=== PATIENT | female | born 1955 | race Caucasian/White ===

== ENCOUNTER → 2018-04-09 14:28 | Outpatient (CLI) | payer MEDICARE, OTHER, SELFPAY ==
--- NOTE | 2018-04-09 | DI.MG.S_ITS ---
BILATERAL DIGITAL SCREENING MAMMOGRAM 3D/2D WITH CAD: 04/09/2018 CLINICAL: Routine screening. Family history of breast cancer. Comparison is made to exams dated: 02/11/2016 mammogram, 01/08/2015 mammogram, and 01/16/2013 mammogram - [facility]. The tissue of both breasts is heterogeneously dense. This may lower the sensitivity of mammography. Current study was also evaluated with a Computer Aided Detection (CAD) system. Bilateral breast implants are intact. No significant masses, calcifications, or other findings are seen in either breast. There has been no significant interval change. IMPRESSION: NEGATIVE There is no mammographic evidence of malignancy. A 1 year screening mammogram is recommended. This exam was interpreted at Station ID: [id number]. NOTE: For mammograms, a report in lay terms will be sent to the patient. Approximately 15% of breast malignancies will not be visualized mammographically. In the management of a palpable breast mass, a negative mammogram must not discourage biopsy of a clinically suspicious lesion. Electronically Signed By: Jasper ramirez/ivania:04/09/2018 16:41:47 letter sent: Normal Exam ACR BI-RADS Category 1: Negative 3341F
== END ==
PROVIDERS: Visit Provider Family Medicine
DX: Z12.31 Encounter for screening mammogram for malignant neoplasm of breast (principal); Z80.3 Family history of malignant neoplasm of breast
CPT/HCPCS: 77063; 77067

== ENCOUNTER → 2018-08-14 07:47 | Outpatient (CLI) | payer MEDICARE, OTHER, SELFPAY ==
[2018-08-14 08:58] LABS: Cholesterol 218 mg/dL (140-199); HDL Cholesterol 97 mg/dL (40-60); LDL Cholesterol Calculated 94 mg/dL (<100); Triglycerides 134 mg/dL (35-150)
== END ==
PROVIDERS: Visit Provider Internal Medicine
DX: E78.00 Pure hypercholesterolemia, unspecified (principal)
CPT/HCPCS: 80061

== ENCOUNTER → 2018-12-05 13:00 | Outpatient (CLI) | payer OTHER, SELFPAY | PROVIDERS: PCP Student in an Organized Health Care Education/Training Program; Visit Provider Student in an Organized Health Care Education/Training Program | DX: Z13.820 Encounter for screening for osteoporosis (principal); Z78.0 Asymptomatic menopausal state; E07.9 Disorder of thyroid, unspecified; Z82.62 Family history of osteoporosis | CPT/HCPCS: 77080 ==

== ENCOUNTER → 2019-04-09 15:00 | Outpatient (CLI) | payer OTHER, SELFPAY ==
--- NOTE | 2019-04-09 | DI.MG.S_ITS ---
BILATERAL DIGITAL SCREENING MAMMOGRAM 3D/2D WITH CAD WITH AUGMENTATION: 04/09/2019 CLINICAL: Routine screening. Family history of breast cancer. Comparison is made to exams dated: 04/09/2018 mammogram, 02/11/2016 mammogram, and 01/08/2015 mammogram - [facility]. The tissue of both breasts is heterogeneously dense. This may lower the sensitivity of mammography. Current study was also evaluated with a Computer Aided Detection (CAD) system. Bilateral breast implants are intact. There is a benign biopsy clip in the right breast. No significant masses, calcifications, or other findings are seen in either breast. There has been no significant interval change. IMPRESSION: NEGATIVE There is no mammographic evidence of malignancy. A 1 year screening mammogram is recommended. This exam was interpreted at Station ID: [id number]. NOTE: For mammograms, a report in lay terms will be sent to the patient. Approximately 15% of breast malignancies will not be visualized mammographically. In the management of a palpable breast mass, a negative mammogram must not discourage biopsy of a clinically suspicious lesion. Electronically Signed By: Isaac jackson/ivania:04/09/2019 16:43:10 letter sent: Normal Exam ACR BI-RADS Category 1: Negative 3341F
== END ==
PROVIDERS: PCP Student in an Organized Health Care Education/Training Program; Visit Provider Student in an Organized Health Care Education/Training Program
DX: Z12.31 Encounter for screening mammogram for malignant neoplasm of breast (principal); Z80.3 Family history of malignant neoplasm of breast
CPT/HCPCS: 77063; 77067

== ENCOUNTER → 2019-05-09 15:17 | Outpatient (CLI) | payer OTHER, SELFPAY ==
[2019-05-09 16:30] LABS: BUN Creatinine Ratio 21.3 (6-22); Blood Urea Nitrogen 17 mg/dL (7-17); Calcium 9.9 mg/dL (8.4-10.2); Carbon Dioxide 30 mmol/L (22-32); Chloride 99 mmol/L (98-107); Estimated Glomerular Filt Rate > 60.0 mL/min (>60); Glucose 95 mg/dL (80-110); HEMOLYSIS < 15 (0-50); Potassium 4.6 mmol/L (3.4-5.1); Sodium 138 mmol/L (137-145)
[2019-05-09 17:19] LABS: Vitamin B12 287 pg/mL (239-931)
== END ==
PROVIDERS: PCP Student in an Organized Health Care Education/Training Program; Visit Provider Student in an Organized Health Care Education/Training Program
DX: K52.9 Noninfective gastroenteritis and colitis, unspecified (principal); R10.13 Epigastric pain
CPT/HCPCS: 36415; 80048; 82607; 83516

== ENCOUNTER → 2019-05-11 11:20 | Outpatient (CLI) | payer OTHER, SELFPAY ==
[2019-05-11 13:47] LABS: Clostridium Difficile Tox PCR Negative for C. diff
[2019-05-16 17:00] LABS: Calprotectin, Stool 32.3 mcg/g
== END ==
PROVIDERS: PCP Student in an Organized Health Care Education/Training Program; Visit Provider Student in an Organized Health Care Education/Training Program
DX: K52.9 Noninfective gastroenteritis and colitis, unspecified (principal); R10.13 Epigastric pain
CPT/HCPCS: 83993; 86677; 87045; 87329; 87493; 87899

== ENCOUNTER → 2019-05-30 11:55 | Outpatient (CLI) | payer OTHER, SELFPAY ==
--- NOTE | 2019-05-30 11:58 | DI.RAD.S_ITS ---
PROCEDURE: XR CHEST 2V INDICATIONS: Cough, suspect bronchitis TECHNIQUE: 2 views of the chest were acquired. COMPARISON: [facility], , CHEST 2 VIEW, 12/11/2013, 14:57. FINDINGS: Surgical changes and devices: None. Lungs and pleura: Lungs are clear. No pleural effusions or pneumothorax. Mediastinum: Mediastinal contours are normal. Heart size is normal. Bones and chest wall: No suspicious bony abnormalities. Soft tissues appear unremarkable. IMPRESSION: No acute cardiopulmonary disease. Dictated by: Nirav Pabon M.D. on 05/30/2019 at 14:14 Approved by: Nirav Pabon M.D. on 05/30/2019 at 14:14
== END ==
PROVIDERS: PCP Student in an Organized Health Care Education/Training Program; Visit Provider Student in an Organized Health Care Education/Training Program
DX: R05 Cough (principal)
CPT/HCPCS: 71046

== ENCOUNTER → 2019-06-12 11:44 | Outpatient (CLI) | payer OTHER, SELFPAY ==
[2019-06-12 12:51] LABS: Hematocrit 35.7 % (36-46); Hemoglobin 12.1 g/dL (12.0-16.0); Mean Corpuscular Hemoglobin 32.5 PG (26-34); Mean Corpuscular Volume 95.5 fL (80-100); Platelet Count 322 X10^3/uL (150-400); Red Blood Cell Count 3.74 X10^6/uL (4.0-5.2); Red Cell Distribution Width 14.7 % (11.6-14.8); White Blood Cell Count 6.7 X10^3/uL (4.5-11.0)
[2019-06-12 13:03] LABS: Alanine Aminotransferase 30 IU/L (9-52); Albumin 4.3 g/dL (3.5-5.0); Albumin Globulin Ratio 1.3 (1.0-2.8); Alkaline Phosphatase 116 U/L (38-126); Aspartate Aminotransferase 37 IU/L (14-36); Bilirubin Total 0.5 mg/dL (0.2-1.3); Bilirubin Unconjugated 0.2 mg/dL (0.0-1.1); Gamma Glutamyl Transpeptidase 216 U/L (12-43); Globulin 3.2 g/dL (1.7-4.1); HEMOLYSIS < 15 (0-50); Lipase 137 U/L (23-300); Total Protein 7.5 g/dL (6.3-8.2)
== END ==
PROVIDERS: PCP Student in an Organized Health Care Education/Training Program; Visit Provider Student in an Organized Health Care Education/Training Program
DX: R10.13 Epigastric pain (principal); E03.9 Hypothyroidism, unspecified; K21.9 Gastro-esophageal reflux disease without esophagitis
CPT/HCPCS: 36415; 80076; 82977; 83690; 85027

== ENCOUNTER → 2019-06-14 11:04 | Outpatient (CLI) | payer OTHER, SELFPAY ==
--- NOTE | 2019-06-14 11:06 | DI.US.S_ITS ---
PROCEDURE: US ABDOMEN LIMITED INDICATIONS: EPIGASTRIC PAIN TECHNIQUE: Real-time focused scanning was performed of the abdomen, with image documentation. COMPARISON: [facility], US, ABDOMEN COMPLETE, 01/02/2014, 7:48. [facility], CT, CHEST/ABDOMEN WITHOUT CONTRAST, 12/13/2013, 13:10. FINDINGS: Liver is diffusely increased in echogenicity. No focal hepatic abnormalities identified. Normal hepatic size. Focal fatty sparing adjacent to the gallbladder. No gallstones identified. Normal gallbladder wall. Previously visualized gallbladder polyps is not seen on today's exam. No pericholecystic fluid. Negative sonographic Resendez sign. No biliary dilatation. Normal pancreas. IMPRESSION: 1. Increased hepatic echogenicity noted possibly related to hepatic steatosis but other sources of hepatocellular disease cannot be excluded. Recommend clinical correlation. Dictated by: Chad Yancey [facility] Interpreted: Yue Kemp MD on 06/14/2019 at 13:10 Approved by: Yue Kemp MD, PhD on 06/14/2019 at 14:20
== END ==
PROVIDERS: PCP Student in an Organized Health Care Education/Training Program; Visit Provider Student in an Organized Health Care Education/Training Program
DX: R10.13 Epigastric pain (principal)
CPT/HCPCS: 76705

== ENCOUNTER → 2019-07-29 11:17 | Outpatient (CLI) | payer OTHER, SELFPAY ==
[2019-07-31 08:02] LABS: Immunoglobulin A,Qn 183
[2019-07-31 08:05] LABS: Deamidated Gliadin Ab IgA 3
[2019-07-31 08:06] LABS: Deamidated Gliadin Ab IgG 3
[2019-07-31 08:08] LABS: t-Transglutaminase IgA <2
== END ==
PROVIDERS: PCP Student in an Organized Health Care Education/Training Program
DX: R19.7 Diarrhea, unspecified (principal)
CPT/HCPCS: 36415; 82784; 83516

== ENCOUNTER 2019-08-12 05:20 | Emergency (ER) | payer OTHER, SELFPAY ==
--- NOTE | 2019-08-12 05:25 | ED.GENADULT ---
HPI - General Adult General Chief complaint: Dizziness Stated complaint: DIZZINESS, FELL, NAUSEA Time Seen by Provider: 08/12/19 05:22 Source: patient Mode of arrival: Ambulatory Limitations: no limitations History of Present Illness HPI narrative: 64-year-old female here for evaluation of an episode that occurred this morning. Patient states she woke up to urinate and when she sat on the edge of the bed she stated that she became very dizzy. No other associated symptoms at the time. States she has tried to stand up and fell forward. Hit her head on the ground. No loss of consciousness. She is not on blood thinners. She has no neck pain. Her helped her of the floor. States she went into the restroom and sat on the toilet for period of time and still was very dizzy. Worse when she had her eyes open. Again no other associated symptoms. She did urinate during this time. She states she became very clammy and nauseous. Did have some episodes of vomiting. States she sat on the toilet for approximately 30 minutes when her symptoms were only minimally improving she decided to come into the emergency department for evaluation. Related Data Home Medications Medication Instructions Recorded Confirmed betamethasone dipropionate 0.05 % 1 applictn TOP DAILY PRN 11/28/18 06/12/19 topical cream calcitriol 3 mcg/gram topical 1 applictn TOP Q12H 11/28/18 06/12/19 ointment cetirizine 10 mg tablet 5 mg PO DAILY PRN 11/28/18 06/12/19 lutein 40 mg capsule 40 mg PO DAILY 11/28/18 06/12/19 cholecalciferol (vitamin D3) 2,000 2,000 unit PO DAILY 05/30/19 06/12/19 unit capsule mecobalamin (vitamin B12) 5,000 mcg PO tab 05/30/19 06/12/19 mcg disintegrating tablet Previous Rx's Medication Instructions Recorded epinephrine 0.3 mg/0.3 mL 0.3 mg IM ONCE #2 each 08/08/18 injection, auto-injector hydrocortisone 1 % topical cream 1 applictn TOP BID PRN #14.2 gram 11/28/18 rosuvastatin 10 mg tablet 10 mg PO DAILY #90 tab 12/14/18 citalopram 10 mg tablet 10 mg PO QDAY #90 tab 04/09/19 citalopram 20 mg tablet 20 mg PO QDAY #90 tab 04/09/19 pantoprazole 20 mg tablet,delayed 20 mg PO DAILY #30 tab 06/12/19 release levothyroxine 100 mcg tablet 100 mcg PO QDAY #90 tab 07/08/19 Allergies Allergy/AdvReac Type Severity Reaction Status Date / Time tetracycline Allergy Mild HAND EDEMA Verified 06/12/19 11:25 AND SKIN DISCOLORATION (ORANGE) venom-honey bee AdvReac Unknown Verified 06/12/19 11:25 [bee venom (honey bee)] Review of Systems Constitutional Constitutional: Denies fatigue, Denies fever(s) and Denies headache(s) Eyes Eyes: Denies blurry vision, Denies change in vision and Denies loss of vision ENT Ears, Nose, Mouth, and Throat: Reports vertigo, Reports dizziness, Denies headache(s), Denies neck pain, Reports disequilibrium, Denies sinus pressure and Denies sore throat Cardiovascular Cardiovascular: Denies chest pain, Denies syncope, Denies palpitations and Denies dyspnea Respiratory Respiratory: Denies dyspnea Gastrointestinal Gastrointestinal: Denies abdominal pain, Denies nausea and Denies vomiting Genitourinary Genitourinary: Denies dysuria Musculoskeletal Musculoskeletal: Denies myalgias, Denies arthralgias and Denies neck pain Integumentary/Breasts Skin/Breast: Denies rash Neurologic Neurologic: Denies behavioral changes, Denies confusion, Reports vertigo, Reports dizziness, Denies syncope, Denies headache(s), Denies loss of vision, Denies memory loss and Reports disequilibrium Psychiatric Psychiatric: Denies behavioral changes, Denies confusion and Denies memory loss Endocrine Endocrine: Denies fatigue and Denies palpitations Hematologic/Lymphatic Hematologic/Lymphatic: Denies easy bleeding and Denies easy bruising [facility] Medical History Ankle fracture, right (Resolved 2002) Colon polyps (Resolved) Hypothyroidism (Chronic) Menopausal symptoms (Chronic 2007) Psoriasis (Chronic) Pulmonary nodules (Resolved) Surgical History (Updated 05/21/18 @ 16:40 by Yulia Ramírez) History of breast augmentation (Resolved) History of carpal tunnel release (Resolved) History of colonoscopy (Resolved 2010) History of eyelid surgery (Resolved 2013) Status post arthroscopy (Resolved) Status post hysterectomy (Resolved) Family History Sister Thyroid cancer Son Lymphoma Sister Breast cancer Sister Breast cancer Social History Smoking Status: Former smoker Family History Sister Thyroid cancer Son Lymphoma Sister Breast cancer Sister Breast cancer Social History Smoking Status: Former smoker Exam Initial Vital Signs Initial Vital Signs: Vital Signs Temperature 98.3 F 08/12/19 05:27 Pulse Rate 75 08/12/19 05:27 Respiratory Rate 17 08/12/19 05:27 Blood Pressure 144/70 H 08/12/19 05:27 Pulse Oximetry 99 08/12/19 05:27 Const General: cooperative, healthy appearing, comfortable, well developed, well groomed and No acute distress Orientation: alert, awake and oriented x3 HENMT Head: normal to inspection and normocephalic Face and sinus: normal facial exam Mouth: oral mucosae normal Eyes Pupils: PERRL EOM: EOM intact bilaterally Resp Effort & Inspection: normal respiratory effort Auscultation: clear to auscultation bilaterally Cardio Rate: regular rate Rhythm: regular rhythm Pulses: radial pulses present GI Inspection: non-distended Palpation: soft, No firm and No tender Back/Spine/Pelvis Cervical Spine: No collar present and No cervical spinal tenderness Skin Lesions: no lesions Rashes: no rashes Neuro General: alert, awake and oriented x3 Cranial Nerves: CN's II-XI intact bilaterally Cognition: normal cognition Speech: speech normal Gait: normal gait Motor: muscle tone normal throughout Sensory Exam: no sensory deficits noted Extrem General: normal to inspection and capillary refill normal Psych Appearance: grossly normal and well kempt Scores GCS Ramesh coma scale eye opening: Spontaneous [place] coma scale verbal response: Orientated [place] coma scale motor response: Obey commands [place] coma scale total score: 15 Course Orders Ordered: ED Orders 08/12/19 05:24 EKG-12 Lead Stat 08/12/19 05:30 Complete Blood Count AUTO DIFF Stat Comprehensive Metabolic Panel Stat Free T4 Free Thyroxine Stat Lipase Stat Thyroid Stimulating Hormone Stat Triiodothyronine T3 Free Stat Troponin I Stat Discontinued Medications Diazepam (Valium) 5 mg PO NOW ONE Stop: 08/12/19 06:08 Last Admin: 08/12/19 06:42 Dose: Not Given Documented by: ANTONIETA Sodium Chloride (Normal Saline 0.9%) 1,000 mls @ 1,000 mls/hr IV BOLUS ONE Stop: 08/12/19 06:37 Last Admin: 08/12/19 05:45 Dose: 1,000 mls/hr Documented by: ANTONIETA Meclizine HCl (Antivert) 25 mg PO NOW ONE Stop: 08/12/19 05:39 Last Admin: 08/12/19 05:45 Dose: 25 mg Documented by: ANTONIETA Vital Signs Vital signs: Vital Signs - 8 hr 08/12/19 05:27 08/12/19 05:46 08/12/19 06:14 Temperature 98.3 F Pulse Rate 75 73 72 Respiratory Rate 17 17 16 Blood Pressure 144/70 H Blood Pressure [Left Arm] 142/77 H 135/77 Pulse Oximetry 99 96 95 Medical Decision Making Medical Records Medical records reviewed: Yes I reviewed the patient's medical records. Lab Data Lab results reviewed: Yes I reviewed the patient's lab results. Result diagrams: 08/12/19 05:30 08/12/19 05:30 Labs: Lab Results 08/12/19 08/12/19 08/12/19 Range/Units 05:30 05:30 05:30 WBC 5.9 (4.5-11.0) X10^3/uL RBC 3.78 L (4.0-5.2) X10^6/uL Hgb 12.2 (12.0-16.0) g/dL Hct 35.8 L (36-46) % MCV 94.7 (80-100) fL MCH 32.3 (26-34) PG MCHC 34.1 (30-36) % RDW 14.2 (11.6-14.8) % Plt Count 324 (150-400) X10^3/uL Neut % (Auto) 47.5 L (50-75) % Lymph % (Auto) 39.3 (25-40) % [place] % (Auto) 7.3 (3-14) % Eos % (Auto) 4.9 H (2-4) % Baso % (Auto) 1.0 (0-2) % Neut # (Auto) 2800 (1393-4052) /uL Lymph # (Auto) 2300 (0994-0934) /uL [place] # (Auto) 400 (0-900) /uL Eos # (Auto) 300 (0-450) /uL Baso # (Auto) 100 (0-100) /uL Sodium 139 (137-145) mmol/L Potassium 3.8 (3.4-5.1) mmol/L Chloride 103 (98-107) mmol/L Carbon Dioxide 25 (22-32) mmol/L BUN 14 (7-17) mg/dL Creatinine 0.80 (0.52-1.04) mg/dL Estimated GFR > 60.0 (>60) mL/min BUN/Creatinine Ratio 17.5 (6-22) Glucose 133 H (80-110) mg/dL Calcium 8.9 (8.4-10.2) mg/dL Total Bilirubin 0.3 (0.2-1.3) mg/dL AST 36 (14-36) IU/L ALT 31 (9-52) IU/L Alkaline Phosphatase 90 (38-126) U/L Troponin I < 0.012 (0.01-0.034) ng/mL Total Protein 7.6 (6.3-8.2) g/dL Albumin 4.2 (3.5-5.0) g/dL Globulin 3.4 (1.7-4.1) g/dL Albumin/Globulin Ratio 1.2 (1.0-2.8) Lipase 121 (23-300) U/L TSH 8.36 H (0.47-4.68) uIU/mL ECG Data Attestation: I personally reviewed and interpreted this ECG as follows: Prior ECG tracings: not available for review Interpretation: Sinus rhythm Normal axis Ventricular rate is 73 Normal QRS Normal QTC No ST T wave changes MDM Narrative Medical decision making narrative: Patient is a normal neurologic exam in the ER. EKG is unremarkable. Low suspicion for CVA. Low suspicion for TIA. Low suspicion for ACS. Her TSH today is elevated. She states that she recently had her TSH checked here at this hospital by her primary doctor. She states she was told that it was ?normal? I cannot seem to find this prior TSH level. Free T4 and free T3 were ordered an not returned by the time patient was discharged. I did inform her that she should call her primary doctor when the office opens today to follow-up on these lab results and to discuss any changes to her medications. Hold on any further workup for now. Patient expressed understanding and agreement with plan. Discharge Plan Departure Patient Disposition: Home Clinical Impression: Vertigo Instructions: DI for Vertigo Activity Restrictions/Additional Instructions: Your workup today is concerning that your thyroid medications that you are taking may not be enough. I recommend that when the [facility] office opens today that you contact their office and let them know that you were seen here in the emergency department and asked that Dr. Jaeger evaluate your thyroid function tests and make recommendations on any change in your medications. Please return to the emergency department for any new or worsening symptoms Prescriptions: No Action rosuvastatin 10 mg tablet 10 mg PO DAILY Qty: 90 RF: 3 citalopram 10 mg tablet 10 mg PO QDAY Qty: 90 RF: 1 citalopram 20 mg tablet 20 mg PO QDAY Qty: 90 RF: 1 levothyroxine 100 mcg tablet 100 mcg PO QDAY Qty: 90 RF: 3 lutein 40 mg capsule 40 mg PO DAILY RF: 0 cetirizine [24Hour Allergy] 10 mg tablet 5 mg PO DAILY PRNRF: 0 calcitriol 3 mcg/gram ointment 1 applictn TOP Q12H RF: 0 betamethasone dipropionate 0.05 % cream 1 applictn TOP DAILY PRNRF: 0 hydrocortisone 1 % cream 1 applictn TOP BID PRN (Reason: itching) Qty: 14.2 RF: 5 pantoprazole 20 mg tablet,delayed release (DR/EC) 20 mg PO DAILY Qty: 30 RF: 0 epinephrine 0.3 mg/0.3 mL auto-injector 0.3 mg IM ONCE Qty: 2 RF: 1 cholecalciferol (vitamin D3) 2,000 unit capsule 2,000 unit PO DAILY RF: 0 mecobalamin (vitamin B12) 5,000 mcg tablet,disintegrating PO RF: 0 Referrals: Satinder Jaeger MD [Primary Care Provider] -
[2019-08-12 05:27] VITALS: BP 144/70; PULSE 75; RESP 17; TEMP 36.8; O2SAT 99; BMI 36.6
--- NOTE | 2019-08-12 05:43 | PC.NURSE ---
pt repoprts awaking with symptoms. Feeling very sweaty and dizzy, left arm pain. symptoms less severe than when she woke up. She reports feeling nauseous but denies vomiting.
[2019-08-12] MEDS: MECLIZINE HCL 12.5 MG TABLET 25 MG PO (05:45)
[2019-08-12] MEDS: SODIUM CHLORIDE 0.9% 1,000 ML 1000 ML IV (05:45)
[2019-08-12 05:46] VITALS: BP 142/77; PULSE 73; RESP 17; O2SAT 96
[2019-08-12 05:48] LABS: Add Manual Diff / Slide Review NO; Basophils Absolute Auto 100 /uL (0-100); Eosinophils Absolute Auto 300 /uL (0-450); Eosinophils Percent Auto 4.9 % (2-4); Hematocrit 35.8 % (36-46); Hemoglobin 12.2 g/dL (12.0-16.0); Lymphocytes Absolute Auto 2300 /uL (1100-4500); Lymphocytes Percent Auto 39.3 % (25-40); Mean Corpuscular HGB Conc 34.1 % (30-36); Mean Corpuscular Hemoglobin 32.3 PG (26-34); Mean Corpuscular Volume 94.7 fL (80-100); Monocytes Absolute Auto 400 /uL (0-900); Monocytes Percent Auto 7.3 % (3-14); Neutrophils Absolute Auto 2800 /uL (1500-7000); Neutrophils Percent Auto 47.5 % (50-75); Platelet Count 324 X10^3/uL (150-400); Red Blood Cell Count 3.78 X10^6/uL (4.0-5.2); Red Cell Distribution Width 14.2 % (11.6-14.8); White Blood Cell Count 5.9 X10^3/uL (4.5-11.0)
[2019-08-12 05:51] LABS: Alanine Aminotransferase 31 IU/L (9-52); Albumin 4.2 g/dL (3.5-5.0); Albumin Globulin Ratio 1.2 (1.0-2.8); Alkaline Phosphatase 90 U/L (38-126); Aspartate Aminotransferase 36 IU/L (14-36); BUN Creatinine Ratio 17.5 (6-22); Bilirubin Total 0.3 mg/dL (0.2-1.3); Blood Urea Nitrogen 14 mg/dL (7-17); Calcium 8.9 mg/dL (8.4-10.2); Carbon Dioxide 25 mmol/L (22-32); Chloride 103 mmol/L (98-107); Estimated Glomerular Filt Rate > 60.0 mL/min (>60); Globulin 3.4 g/dL (1.7-4.1); Glucose 133 mg/dL (80-110); HEMOLYSIS < 15 (0-50); Lipase 121 U/L (23-300); Potassium 3.8 mmol/L (3.4-5.1); Sodium 139 mmol/L (137-145); Total Protein 7.6 g/dL (6.3-8.2)
[2019-08-12 06:03] LABS: Troponin I < 0.012 ng/mL (0.01-0.034)
[2019-08-12 06:14] VITALS: BP 135/77; PULSE 72; RESP 16; O2SAT 95
[2019-08-12 06:28] LABS: Thyroid Stimulating Hormone 8.36 uIU/mL (0.47-4.68)
[2019-08-12 06:56] VITALS: BP 132/80; PULSE 74; RESP 17; O2SAT 96
[2019-08-12 07:09] LABS: Free T3, Triiodothyronine Free 2.77 pg/mL (2.77-5.27); Free T4, Direct Thyroxine 0.91 ng/dL (0.78-2.19)
== END 2019-08-12 07:01 | disposition home or self-care (01) ==
PROVIDERS: Emergency Provider Emergency Medicine; PCP Student in an Organized Health Care Education/Training Program
DX: R42 Dizziness and giddiness (principal)
CPT/HCPCS: 36591; 80053; 83690; 84439; 84443; 84481; 84484; 85025; 93005; 93010; 96360; 99283; 99284

== ENCOUNTER → 2019-09-16 07:41 | Outpatient (CLI) | payer OTHER, SELFPAY ==
[2019-09-16 10:27] LABS: TSH w/ Reflex to FT4 2.95 uIU/mL (0.47-4.68)
== END ==
PROVIDERS: PCP Student in an Organized Health Care Education/Training Program; Visit Provider Student in an Organized Health Care Education/Training Program
DX: E03.9 Hypothyroidism, unspecified (principal)
CPT/HCPCS: 84443

== ENCOUNTER → 2020-05-09 13:43 | Outpatient (CLI) | payer MEDICARE, SELFPAY ==
--- NOTE | 2020-05-09 | DI.MG.S_ITS ---
BILATERAL DIGITAL SCREENING MAMMOGRAM 3D/2D WITH CAD WITH AUGMENTATION: 05/09/2020 CLINICAL: Routine screening. Family history of breast cancer. Comparison is made to exams dated: 04/09/2019 mammogram, 04/09/2018 mammogram, 02/11/2016 mammogram, 01/08/2015 mammogram, and 01/08/2013 mammogram - [facility]. The tissue of both breasts is heterogeneously dense. This may lower the sensitivity of mammography. Current study was also evaluated with a Computer Aided Detection (CAD) system. Bilateral breast implants are intact. There are benign calcifications in both breasts. There also is a biopsy clip in the right breast. No significant masses, calcifications, or other findings are seen in either breast. There has been no significant interval change. IMPRESSION: There is no mammographic evidence of malignancy. A 1 year screening mammogram is recommended. This exam was interpreted at Station ID: [id number]. NOTE: For mammograms, a report in lay terms will be sent to the patient. Approximately 15% of breast malignancies will not be visualized mammographically. In the management of a palpable breast mass, a negative mammogram must not discourage biopsy of a clinically suspicious lesion. Electronically Signed By: Cyril duong/ivania:05/11/2020 07:54:15 letter sent: Normal Exam ACR BI-RADS Category 2: Benign Finding(s) 3342F
== END ==
PROVIDERS: PCP Student in an Organized Health Care Education/Training Program; Referring Provider Student in an Organized Health Care Education/Training Program; Visit Provider Student in an Organized Health Care Education/Training Program
DX: Z12.31 Encounter for screening mammogram for malignant neoplasm of breast (principal); Z80.3 Family history of malignant neoplasm of breast
CPT/HCPCS: 77063; 77067

== ENCOUNTER → 2021-02-18 14:30 | Outpatient (CLI) | payer MEDICARE, SELFPAY ==
[2021-02-18 16:03] LABS: Add Manual Diff / Slide Review NO; Basophils Absolute Auto 100 /uL (0-100); Basophils Percent Auto 0.7 % (0-2); Eosinophils Absolute Auto 300 /uL (0-450); Eosinophils Percent Auto 3.4 % (2-4); Hematocrit 36.1 % (36-46); Hemoglobin 12.1 g/dL (12.0-16.0); Lymphocytes Absolute Auto 2200 /uL (1100-4500); Lymphocytes Percent Auto 24.6 % (25-40); Mean Corpuscular HGB Conc 33.6 % (30-36); Mean Corpuscular Hemoglobin 29.8 PG (26-34); Mean Corpuscular Volume 88.6 fL (80-100); Monocytes Absolute Auto 600 /uL (0-900); Monocytes Percent Auto 7.1 % (3-14); Neutrophils Absolute Auto 5800 /uL (1500-7000); Neutrophils Percent Auto 64.2 % (50-75); Platelet Count 428 X10^3/uL (150-400); Red Blood Cell Count 4.07 X10^6/uL (4.0-5.2); Red Cell Distribution Width 14.1 % (11.6-14.8)
[2021-02-18 16:32] LABS: Alanine Aminotransferase 20 IU/L (<35); Albumin 4.2 g/dL (3.5-5.0); Albumin Globulin Ratio 1.2 (1.0-2.8); Alkaline Phosphatase 115 U/L (38-126); Aspartate Aminotransferase 25 IU/L (14-36); BUN Creatinine Ratio 23.9 (6-22); Bilirubin Total 0.2 mg/dL (0.2-1.3); Blood Urea Nitrogen 16 mg/dL (7-17); Calcium 9.6 mg/dL (8.4-10.2); Carbon Dioxide 31 mmol/L (22-32); Chloride 100 mmol/L (98-107); Estimated Glomerular Filt Rate > 60.0 mL/min (>60); Globulin 3.6 g/dL (1.7-4.1); Glucose 107 mg/dL (80-110); HEMOLYSIS < 15 (0-50); Potassium 4.3 mmol/L (3.4-5.1); Sodium 138 mmol/L (137-145); Total Protein 7.8 g/dL (6.3-8.2)
[2021-02-18 17:03] LABS: TSH w/ Reflex to FT4 0.72 uIU/mL (0.47-4.68)
== END ==
PROVIDERS: PCP Student in an Organized Health Care Education/Training Program; Referring Provider Student in an Organized Health Care Education/Training Program; Visit Provider Student in an Organized Health Care Education/Training Program
DX: E03.9 Hypothyroidism, unspecified (principal); E55.9 Vitamin D deficiency, unspecified; Z79.899 Other long term (current) drug therapy
CPT/HCPCS: 36415; 80053; 82306; 84443; 85025

== ENCOUNTER → 2021-03-10 15:09 | Outpatient (CLI) | payer MEDICARE, SELFPAY ==
--- NOTE | 2021-03-10 | DI.MG.S_ITS ---
BILATERAL DIGITAL SCREENING MAMMOGRAM 3D/2D WITH CAD WITH AUGMENTATION: 03/10/2021 CLINICAL: Routine screening. Family history of breast cancer. Comparison is made to exams dated: 05/09/2020 mammogram, 04/09/2019 mammogram, and 04/09/2018 mammogram - [facility]. The tissue of both breasts is heterogeneously dense. This may lower the sensitivity of mammography. Current study was also evaluated with a Computer Aided Detection (CAD) system. Bilateral breast implants are intact. There are benign calcifications in both breasts. There also is a biopsy clip in the right breast. No significant masses, calcifications, or other findings are seen in either breast. There has been no significant interval change. IMPRESSION: BENIGN There is no mammographic evidence of malignancy. A 1 year screening mammogram is recommended. Future imaging is recommended as follows: 05/10/2021 screening mammogram. This exam was interpreted at Station ID: [id number]. NOTE: For mammograms, a report in lay terms will be sent to the patient. Approximately 15% of breast malignancies will not be visualized mammographically. In the management of a palpable breast mass, a negative mammogram must not discourage biopsy of a clinically suspicious lesion. Electronically Signed By: Tanner roberts/ivania:03/10/2021 16:17:00 letter sent: Normal Exam ACR BI-RADS Category 2: Benign Finding(s) 3342F
== END ==
PROVIDERS: PCP Student in an Organized Health Care Education/Training Program; Referring Provider Student in an Organized Health Care Education/Training Program; Visit Provider Student in an Organized Health Care Education/Training Program
DX: Z12.31 Encounter for screening mammogram for malignant neoplasm of breast; Z13.820 Encounter for screening for osteoporosis; Z80.3 Family history of malignant neoplasm of breast; Z78.0 Asymptomatic menopausal state; E07.9 Disorder of thyroid, unspecified; Z87.891 Personal history of nicotine dependence
CPT/HCPCS: 77063; 77067; 77080

== ENCOUNTER → 2022-04-08 14:07 | Outpatient (CLI) | payer MEDICARE, SELFPAY ==
--- NOTE | 2022-04-08 14:09 | DI.MG.S_ITS ---
BILATERAL DIGITAL SCREENING MAMMOGRAM 3D/2D WITH CAD WITH AUGMENTATION: 04/08/2022 CLINICAL: Routine screening. Family history of breast cancer. Comparison is made to exams dated: 03/10/2021 mammogram, 05/09/2020 mammogram, and 04/09/2019 mammogram - [facility]. The tissue of both breasts is heterogeneously dense. This may lower the sensitivity of mammography. Current study was also evaluated with a Computer Aided Detection (CAD) system. There is a possible new 0.6 cm oval equal density asymmetry in the left breast middle depth lateral region seen on the craniocaudal view only. No other significant masses, calcifications, or other findings are seen in either breast. IMPRESSION: INCOMPLETE: NEEDS ADDITIONAL IMAGING EVALUATION The possible new 0.6 cm oval equal density asymmetry in the left breast is indeterminate. Additional views with possible ultrasound are recommended. The implants have a stable appearance. This exam was interpreted at Station ID: [id number]. NOTE: For mammograms, a report in lay terms will be sent to the patient. Approximately 15% of breast malignancies will not be visualized mammographically. In the management of a palpable breast mass, a negative mammogram must not discourage biopsy of a clinically suspicious lesion. Electronically Signed By: Isaac Anderson M.D. aty/:04/08/2022 15:34:51 letter sent: Additional Imaging Needed ACR BI-RADS Category 0: Incomplete 3340F
== END ==
PROVIDERS: PCP Student in an Organized Health Care Education/Training Program; Referring Provider Student in an Organized Health Care Education/Training Program; Visit Provider Student in an Organized Health Care Education/Training Program
DX: Z12.31 Encounter for screening mammogram for malignant neoplasm of breast (principal); Z80.3 Family history of malignant neoplasm of breast
CPT/HCPCS: 77063; 77067

== ENCOUNTER → 2022-05-10 13:14 | Outpatient (CLI) | payer MEDICARE, SELFPAY ==
--- NOTE | 2022-05-10 | DI.MG.S_ITS ---
UNILATERAL LEFT DIGITAL DIAGNOSTIC MAMMOGRAM 3D/2D WITH ADDITIONAL VIEWS: 05/10/2022 CLINICAL: Additional evaluation requested from prior study. Comparison is made to exams dated: 04/08/2022 mammogram, 03/10/2021 mammogram, 05/09/2020 mammogram, and 04/09/2019 mammogram - [facility]. The tissue of left breast is heterogeneously dense. This may lower the sensitivity of mammography. There is a 0.6 cm oval fat containing asymmetry in the left breast middle depth lateral region seen on the craniocaudal view only. This is less prominent. No other significant masses or calcifications are seen in the breast. IMPRESSION: INCOMPLETE: NEEDS ADDITIONAL IMAGING EVALUATION The 0.6 cm oval fat containing asymmetry in the left breast resembles fibroglandular tissue and is indeterminate. A targeted ultrasound is recommended and will immediately follow. This exam was interpreted at Station ID: [id number]. NOTE: For mammograms, a report in lay terms will be sent to the patient. Approximately 15% of breast malignancies will not be visualized mammographically. In the management of a palpable breast mass, a negative mammogram must not discourage biopsy of a clinically suspicious lesion. Electronically Signed By: Cyril Hoskins M.D. slc/:05/10/2022 14:56:49 ACR BI-RADS Category 0: Incomplete 3340F
--- NOTE | 2022-05-10 13:14 | DI.US.S_ITS ---
LIMITED ULTRASOUND OF LEFT BREAST AND AXILLA: 05/10/2022 CLINICAL: Patient returns today to evaluate an asymmetry in the left breast. Comparison is made to exams dated: 05/10/2022 mammogram, 04/08/2022 mammogram, 03/10/2021 mammogram, 05/09/2020 mammogram, 04/09/2019 mammogram, and 04/09/2018 mammogram - [facility]. Color flow and real-time ultrasound of the left breast axilla were performed. Morales scale images of the real-time examination were reviewed. There is a foreign body in the left axilla. No significant abnormalities were seen sonographically in the left breast in the region of possible asymmetry. There is benign fibroglandular tissue in this region. IMPRESSION: BENIGN There is no sonographic evidence of malignancy. Benign fibroglandular tissue in the region of possible asymmetry. Extracapsular silicone in the left axilla is benign. This is indicative of prior implant rupture. A 1 year screening mammogram is recommended. Exam findings were conveyed to the patient. This exam was interpreted at Station ID: [id number]. Electronically Signed By: Cyril Hoskins M.D. [facility]/:05/10/2022 15:01:38 Entry: - 05/11/2022 10:08:06 letter sent: Normal Exam Ultrasound BI-RADS: 2 Benign
== END ==
PROVIDERS: PCP Student in an Organized Health Care Education/Training Program; Referring Provider Student in an Organized Health Care Education/Training Program; Visit Provider Student in an Organized Health Care Education/Training Program
DX: R92.8 Other abnormal and inconclusive findings on diagnostic imaging of breast (principal); N64.89 Other specified disorders of breast
CPT/HCPCS: 76642; 77065; G0279

== ENCOUNTER → 2022-06-17 14:57 | Outpatient (CLI) | payer MEDICARE, SELFPAY ==
--- NOTE | 2022-06-17 15:00 | DI.RAD.S_ITS ---
PROCEDURE: XR CHEST 2V INDICATIONS: cough TECHNIQUE: 2 views of the chest were acquired. COMPARISON: [facility], CR, XR CHEST 2V, 05/30/2019, 12:05. FINDINGS: Surgical changes and devices: None. Lungs and pleura: Lungs are clear. No pleural effusions or pneumothorax. Mediastinum: Mediastinal contours are normal. Heart size is normal. Bones and chest wall: No suspicious bony abnormalities. Soft tissues appear unremarkable. IMPRESSION: No source for cough identified radiographically. Dictated by: Chad Yancey [facility] Interpreted: Laquita Thompson MD on 06/17/2022 at 15:23 Transcribed by: KEITH on 06/17/2022 at 15:23 Approved by: Laquita Thompson M.D. on 06/17/2022 at 17:28
[2022-06-17 16:57] LABS: Add Manual Diff / Slide Review NO; Basophils Absolute Auto 0 /uL (0-100); Basophils Percent Auto 0.5 % (0-2); Eosinophils Absolute Auto 300 /uL (0-450); Eosinophils Percent Auto 3.7 % (2-4); Hematocrit 37.2 % (36-46); Hemoglobin 12.9 g/dL (12.0-16.0); Lymphocytes Absolute Auto 2300 /uL (1100-4500); Lymphocytes Percent Auto 29.2 % (25-40); Mean Corpuscular HGB Conc 34.6 % (30-36); Mean Corpuscular Hemoglobin 32.1 PG (26-34); Mean Corpuscular Volume 92.6 fL (80-100); Monocytes Absolute Auto 600 /uL (0-900); Monocytes Percent Auto 7.5 % (3-14); Neutrophils Absolute Auto 4600 /uL (1500-7000); Neutrophils Percent Auto 59.1 % (50-75); Platelet Count 320 X10^3/uL (150-400); Red Blood Cell Count 4.02 X10^6/uL (4.0-5.2); Red Cell Distribution Width 13.9 % (11.6-14.8); White Blood Cell Count 7.8 X10^3/uL (4.5-11.0)
[2022-06-17 17:13] LABS: Alanine Aminotransferase 22 IU/L (<35); Albumin 4.3 g/dL (3.5-5.0); Albumin Globulin Ratio 1.3 (1.0-2.8); Alkaline Phosphatase 91 U/L (38-126); Aspartate Aminotransferase 27 IU/L (14-36); BUN Creatinine Ratio 21.4 (6-22); Bilirubin Total 0.5 mg/dL (0.2-1.3); Blood Urea Nitrogen 15 mg/dL (7-17); Carbon Dioxide 29 mmol/L (22-32); Chloride 100 mmol/L (98-107); Estimated Glomerular Filt Rate > 60 mL/min (>60); Globulin 3.3 g/dL (1.7-4.1); Glucose 102 mg/dL (80-110); HEMOLYSIS < 15 (0-50); Potassium 3.8 mmol/L (3.4-5.1); Sodium 134 mmol/L (137-145); Total Protein 7.6 g/dL (6.3-8.2)
[2022-06-17 17:19] LABS: NT-proBNP (BNP-Adult 18+) 59 pg/mL (<125)
[2022-06-17 17:42] LABS: TSH w/ Reflex to FT4 0.63 uIU/mL (0.47-4.68)
[2022-06-17 18:01] LABS: Erythrocyte Sedimentation Rate 44 MM/HR (0-20)
== END ==
PROVIDERS: PCP Student in an Organized Health Care Education/Training Program; Referring Provider Pediatrics; Visit Provider Pediatrics
DX: R06.01 Orthopnea; E03.9 Hypothyroidism, unspecified; R05.3 Chronic cough
CPT/HCPCS: 36415; 71046; 80053; 83880; 84443; 85025; 85651

== ENCOUNTER → 2023-04-10 11:23 | Outpatient (CLI) | payer MEDICARE, SELFPAY ==
--- NOTE | 2023-04-10 | DI.MG.S_ITS ---
BILATERAL DIGITAL SCREENING MAMMOGRAM 3D/2D WITH CAD WITH AUGMENTATION: 04/10/2023 CLINICAL: Routine screening. Family history of breast cancer. Comparison is made to exams dated: 05/10/2022 mammogram, 04/08/2022 mammogram, 03/10/2021 mammogram, and 05/09/2020 mammogram - [facility]. Both breasts are heterogeneously dense, which may obscure small masses (category c / 51-75% glandular tissue). Current study was also evaluated with a Computer Aided Detection (CAD) system. Bilateral breast implants are stable. No significant masses, calcifications, or other findings are seen in either breast. There has been no significant interval change. IMPRESSION: NEGATIVE There is no mammographic evidence of malignancy. A 1 year screening mammogram is recommended. Based on Tyrer-Cuzick model (a risk assessment model), the patient's lifetime risk is 22.4% and her 10 year risk is 13.6%. If a patient has an elevated risk, a more comprehensive evaluation should be considered and/or a referral to a genetic counselor. The [employer], [employer], and NCCN Guidelines advise the consideration of Breast MRI as an adjunct to screening mammography in patients whose Lifetime risk to develop breast cancer is 20% or higher. This exam was interpreted at Station ID: [id number]. NOTE: For mammograms, a report in lay terms will be sent to the patient. Approximately 15% of breast malignancies will not be visualized mammographically. In the management of a palpable breast mass, a negative mammogram must not discourage biopsy of a clinically suspicious lesion. Electronically Signed By: Nicolette lyn/ivania:04/10/2023 14:02:30 letter sent: Normal Exam ACR BI-RADS Category 1: Negative [id number]
== END ==
PROVIDERS: PCP Student in an Organized Health Care Education/Training Program; Referring Provider Student in an Organized Health Care Education/Training Program; Visit Provider Student in an Organized Health Care Education/Training Program
DX: Z12.31 Encounter for screening mammogram for malignant neoplasm of breast (principal)
CPT/HCPCS: 77063; 77067

== ENCOUNTER → 2023-08-28 13:52 | Outpatient (CLI) | payer MEDICARE, SELFPAY ==
--- NOTE | 2023-08-28 13:53 | DI.RAD.S_ITS ---
PROCEDURE: XR KNEE LT 3V INDICATIONS: Known OA w/worsening joint pain TECHNIQUE: 3 views of the knee were acquired. COMPARISON: [facility], , KNEE 3V RIGHT, 04/03/2017, 14:38. FINDINGS: Bones: Tricompartmental degenerative changes with medial joint space narrowing. No fractures or dislocations. No suspicious bony lesions. Soft tissues: No joint effusion. No suspicious soft tissue calcifications. IMPRESSION: Osteoarthritis of the left knee. Dictated by: Francisco Condon M.D. on 08/28/2023 at 15:15 Approved by: Francisco Condon M.D. on 08/28/2023 at 15:16
== END ==
PROVIDERS: PCP Family Medicine; Referring Provider Family Medicine; Visit Provider Family Medicine
DX: M17.0 Bilateral primary osteoarthritis of knee (principal)
CPT/HCPCS: 73562

== ENCOUNTER → 2023-09-11 08:55 | Outpatient (CLI) | payer MEDICARE, SELFPAY ==
[2023-09-11 10:13] LABS: Add Manual Diff / Slide Review NO; Basophils Absolute Auto 0 /uL (0-100); Basophils Percent Auto 0.6 % (0-2); Eosinophils Absolute Auto 200 /uL (0-450); Eosinophils Percent Auto 4.3 % (2-4); Hematocrit 39.1 % (36-46); Hemoglobin 13.3 g/dL (12.0-16.0); Lymphocytes Absolute Auto 1800 /uL (1100-4500); Lymphocytes Percent Auto 34.6 % (25-40); Mean Corpuscular Hemoglobin 31.7 PG (26-34); Mean Corpuscular Volume 93.1 fL (80-100); Monocytes Absolute Auto 500 /uL (0-900); Monocytes Percent Auto 9.5 % (3-14); Neutrophils Absolute Auto 2600 /uL (1500-7000); Platelet Count 259 X10^3/uL (150-400); Red Cell Distribution Width 14.1 % (11.6-14.8); White Blood Cell Count 5.1 X10^3/uL (4.5-11.0)
[2023-09-11 10:27] LABS: Hemoglobin A1C% w Est Avg Glu 7.2 % (4.0-6.0)
[2023-09-11 10:43] LABS: Alanine Aminotransferase 70 IU/L (<35); Albumin 4.1 g/dL (3.5-5.0); Albumin Globulin Ratio 1.1 (1.0-2.8); Alkaline Phosphatase 98 U/L (38-126); Aspartate Aminotransferase 82 IU/L (14-36); BUN Creatinine Ratio 12.3 (6-22); Bilirubin Total 0.4 mg/dL (0.2-1.3); Blood Urea Nitrogen 8 mg/dL (7-17); Calcium 9.4 mg/dL (8.4-10.2); Carbon Dioxide 29 mmol/L (22-32); Chloride 97 mmol/L (98-107); Cholesterol 200 mg/dL (140-199); Estimated Glomerular Filt Rate > 60 mL/min (>60); Globulin 3.6 g/dL (1.7-4.1); Glucose 139 mg/dL (80-110); HDL Cholesterol 96 mg/dL (40-60); HEMOLYSIS < 15 (0-50); LDL Cholesterol Calculated 27 mg/dL (<100); Potassium 4.7 mmol/L (3.4-5.1); Sodium 133 mmol/L (137-145); Total Protein 7.7 g/dL (6.3-8.2); Triglycerides 387 mg/dL (35-150)
[2023-09-11 11:04] LABS: TSH w/ Reflex to FT4 1.94 uIU/mL (0.47-4.68)
[2023-09-11 15:37] LABS: Hep C Virus Ab w/Reflex Quant NEGATIVE s/c (NEGATIVE)
== END ==
PROVIDERS: PCP Family Medicine; Referring Provider Family Medicine; Visit Provider Family Medicine
DX: Z00.00 Encounter for general adult medical examination without abnormal findings (principal); F32.9 Major depressive disorder, single episode, unspecified; E78.5 Hyperlipidemia, unspecified; E03.9 Hypothyroidism, unspecified; M17.0 Bilateral primary osteoarthritis of knee; Z11.59 Encounter for screening for other viral diseases
CPT/HCPCS: 36415; 80053; 80061; 83036; 84443; 85025; 86803

== ENCOUNTER → 2023-10-21 11:04 | Outpatient (CLI) | payer MEDICARE, SELFPAY ==
[2023-10-21 12:18] LABS: Alanine Aminotransferase 36 IU/L (<35); Albumin 4.2 g/dL (3.5-5.0); Albumin Globulin Ratio 1.1 (1.0-2.8); Alkaline Phosphatase 87 U/L (38-126); Aspartate Aminotransferase 36 IU/L (14-36); BUN Creatinine Ratio 16.9 (6-22); Bilirubin Total 0.5 mg/dL (0.2-1.3); Blood Urea Nitrogen 11 mg/dL (7-17); Calcium 9.4 mg/dL (8.4-10.2); Carbon Dioxide 25 mmol/L (22-32); Chloride 100 mmol/L (98-107); Estimated Glomerular Filt Rate > 60 mL/min (>60); Globulin 3.8 g/dL (1.7-4.1); Glucose 128 mg/dL (80-110); HEMOLYSIS < 15 (0-50); Potassium 4.6 mmol/L (3.4-5.1); Sodium 134 mmol/L (137-145)
== END ==
PROVIDERS: PCP Family Medicine; Referring Provider Family Medicine; Visit Provider Family Medicine
DX: E11.9 Type 2 diabetes mellitus without complications (principal); E78.5 Hyperlipidemia, unspecified; R74.8 Abnormal levels of other serum enzymes; E03.9 Hypothyroidism, unspecified
CPT/HCPCS: 36415; 80053

== ENCOUNTER → 2023-12-16 09:51 | Outpatient (CLI) | payer MEDICARE, SELFPAY ==
[2023-12-16 10:25] LABS: Add Manual Diff / Slide Review NO; Basophils Absolute Auto 0 /uL (0-100); Basophils Percent Auto 0.6 % (0-2); Eosinophils Absolute Auto 200 /uL (0-450); Eosinophils Percent Auto 2.1 % (2-4); Hematocrit 36.4 % (36-46); Hemoglobin 12.5 g/dL (12.0-16.0); Lymphocytes Absolute Auto 1500 /uL (1100-4500); Lymphocytes Percent Auto 19.1 % (25-40); Mean Corpuscular HGB Conc 34.3 % (30-36); Mean Corpuscular Volume 96.2 fL (80-100); Monocytes Absolute Auto 900 /uL (0-900); Monocytes Percent Auto 10.8 % (3-14); Neutrophils Absolute Auto 5300 /uL (1500-7000); Neutrophils Percent Auto 67.4 % (50-75); Platelet Count 311 X10^3/uL (150-400); Red Blood Cell Count 3.79 X10^6/uL (4.0-5.2); Red Cell Distribution Width 14.5 % (11.6-14.8); White Blood Cell Count 7.9 X10^3/uL (4.5-11.0)
[2023-12-16 10:56] LABS: Alanine Aminotransferase 23 IU/L (<35); Albumin 3.9 g/dL (3.5-5.0); Albumin Globulin Ratio 1.1 (1.0-2.8); Alkaline Phosphatase 95 U/L (38-126); Aspartate Aminotransferase 26 IU/L (14-36); BUN Creatinine Ratio 13.7 (6-22); Bilirubin Total 0.5 mg/dL (0.2-1.3); Blood Urea Nitrogen 10 mg/dL (7-17); C-Reactive Protein Quant 3.6 mg/dL (<1.0); Calcium 9.5 mg/dL (8.4-10.2); Carbon Dioxide 29 mmol/L (22-32); Chloride 98 mmol/L (98-107); Estimated Glomerular Filt Rate > 60 mL/min (>60); Globulin 3.7 g/dL (1.7-4.1); Glucose 135 mg/dL (80-110); HEMOLYSIS < 15 (0-50); Potassium 4.5 mmol/L (3.4-5.1); Sodium 133 mmol/L (137-145); Total Protein 7.6 g/dL (6.3-8.2); Uric Acid 4.2 mg/dL (2.5-6.2)
== END ==
PROVIDERS: Physician Assistant; PCP Family Medicine; Referring Provider Family Medicine; Visit Provider Family Medicine
DX: M25.431 Effusion, right wrist (principal); R74.8 Abnormal levels of other serum enzymes
CPT/HCPCS: 36415; 80053; 84550; 85025; 86140

== ENCOUNTER → 2023-12-16 12:23 | Outpatient (CLI) | payer MEDICARE, SELFPAY ==
--- NOTE | 2023-12-16 12:24 | DI.RAD.S_ITS ---
PROCEDURE: XR WRIST LT MIN 3V INDICATIONS: right wrist swelling, eval for arthritis, comparison view TECHNIQUE: 4 views of the wrist were acquired. COMPARISON: [facility], CR, XR WRIST RT MIN 3V, 12/16/2023, 12:35. FINDINGS: Bones: No fractures or dislocations. No suspicious bony lesions. Radiocarpal narrowing is present. Very minimal 1st CMC narrowing. No erosions. Soft tissues: No suspicious soft tissue calcifications. IMPRESSION: Arthritic changes most severe at the radiocarpal joint. Dictated by: Laquita Thompson M.D. on 12/16/2023 at 13:46 Approved by: Laquita Thompson M.D. on 12/16/2023 at 13:47
--- NOTE | 2023-12-16 12:24 | DI.RAD.S_ITS ---
PROCEDURE: XR WRIST RT MIN 3V INDICATIONS: right wrist swelling, eval for arthritis TECHNIQUE: A total of 4 views of the wrist were acquired. COMPARISON: None. FINDINGS: Bones: No fractures or dislocations. No suspicious bony lesions. Soft tissues: No suspicious soft tissue calcifications. IMPRESSION: Arthritic change but no acute trauma found. Dictated by: Ernst Sheehan M.D. on 12/16/2023 at 20:05 Approved by: Ernst Sheehan M.D. on 12/16/2023 at 20:06
== END ==
LOC: RAD 12:24
PROVIDERS: PCP Family Medicine; Referring Provider Physician Assistant; Visit Provider Physician Assistant
DX: M25.431 Effusion, right wrist (principal); R74.8 Abnormal levels of other serum enzymes
CPT/HCPCS: 36415; 73110; 80053; 84550; 85025; 86140

== ENCOUNTER → 2024-03-01 07:07 | Outpatient (CLI) | payer MEDICARE, SELFPAY ==
[2024-03-01 08:32] LABS: Creatinine Urine Random 75.3 mg/dL
[2024-03-01 08:36] LABS: Microalbumi Creatinin Ratio Ur 13.2 ug/mg CR (<30)
[2024-03-01 08:42] LABS: Alanine Aminotransferase 19 IU/L (<35); Albumin 3.8 g/dL (3.5-5.0); Albumin Globulin Ratio 1.1 (1.0-2.8); Alkaline Phosphatase 80 U/L (38-126); Aspartate Aminotransferase 29 IU/L (14-36); BUN Creatinine Ratio 14.7 (6-22); Bilirubin Total 0.5 mg/dL (0.2-1.3); Blood Urea Nitrogen 11 mg/dL (7-17); Calcium 9.1 mg/dL (8.4-10.2); Carbon Dioxide 30 mmol/L (22-32); Chloride 102 mmol/L (98-107); Cholesterol 190 mg/dL (140-199); Estimated Glomerular Filt Rate > 60 mL/min (>60); Globulin 3.4 g/dL (1.7-4.1); Glucose 142 mg/dL (80-110); HDL Cholesterol 105 mg/dL (40-60); HEMOLYSIS < 15 (0-50); LDL Cholesterol Calculated 40 mg/dL (<100); Potassium 4.3 mmol/L (3.4-5.1); Sodium 134 mmol/L (137-145); Total Protein 7.2 g/dL (6.3-8.2); Triglycerides 227 mg/dL (35-150)
[2024-03-01 09:43] LABS: Hemoglobin A1C% w Est Avg Glu 6.4 % (4.0-6.0)
== END ==
PROVIDERS: Family Provider Family Medicine; PCP Family Medicine; Referring Provider Family Medicine; Visit Provider Family Medicine
DX: E11.9 Type 2 diabetes mellitus without complications (principal); E78.5 Hyperlipidemia, unspecified; E78.1 Pure hyperglyceridemia; E03.9 Hypothyroidism, unspecified; M19.90 Unspecified osteoarthritis, unspecified site
CPT/HCPCS: 36415; 80053; 80061; 82043; 82570; 83036

== ENCOUNTER 2024-04-18 13:00 | Outpatient (RCR) | payer MEDICARE, SELFPAY ==
--- NOTE | 2024-02-23 15:39 | PT.OIE ---
Current Diagnoses Bilateral primary osteoarthritis of knee (02/23/24) Pain in left hip (02/23/24) Pain in left knee (02/23/24) Radiculopathy, lumbar region (02/23/24) Muscle weakness (generalized) (02/23/24) Past Medical History (Last Updated 10/27/22 @ 17:58 by Satinder Jaeger MD) Ankle fracture, right (2002) Chronic cough Colon polyps Family history of malignant neoplasm of breast in first degree relative (03/20/15) Hypothyroidism Other age-related incipient cataract, left eye Psoriasis Pulmonary nodules Past Surgical History (Last Reviewed 09/29/22 @ 07:40 by YOLANDE Andrea) History of breast augmentation History of carpal tunnel release History of colonoscopy (2010) History of eyelid surgery (2013) Status post arthroscopy Status post hysterectomy Visit Care Team Role Provider Type Jared Jin MD Attending Provider Physician Family Provider Primary Care Provider Referring Provider Specialty: [facility] Obstetrics Address: [address] [place] [address] Email: [email or web address] Physical Therapy Initial Evaluation PT-OP-A Visit Information Start: 02/20/24 18:22 Freq: Status: Active Protocol: Document 02/23/24 13:02 LRN (Rec: 02/23/24 14:24 LRN [id number]) Out-Patient Physical Therapy Visit Information Visit Information Visit Type Initial Evaluation Visit Start Time 13:02 Visit Stop Time 13:51 Visit Number 1 Evaluation Information Evaluation Date 02/23/24 Precautions Precautions Arthritis, anxiety/depression controlled by med. R ankle surgery 2002 for fx, manfred feet surgery to remove nerves from top of both feet 15 yrs ago. PT-OP-B Current Condition Start: 02/20/24 18:22 Freq: Status: Active Protocol: Document 02/23/24 13:02 LRN (Rec: 02/23/24 14:24 LRN [id number]) Current Condition History of Current Condition Onset Date 2 yrs ago Current Complaints L knee pain with stairs and transfer from the floor History of Current Condition Pt reports osteoarthritis of L knee by oceanographer physical who she saw for her R wrist. States she goes to the pool for exercise. Her L knee pain has worsened over the last 2 yrs notable with going up/down stairs. She has had L knee pain for 20 yrs. She thought it was a ligament problem, but it is osteoarthritis and bone spurs. States she has R knee pain with ER of the hip in the pool She doesn't want to give up on pool exercise. Prior Treatments and Tests None. Does pool exercises 3x/ week and [id number] 2x/ wk. Treatment Goals Patient/Caregiver Goals Pt referred to PT; therefore she has no specific goal except to reduce pain with transfers from the floor and with stair ambulation (ascend and descend), and strengthen the core. Pt agreeable to HEP . Personal Factors Other Personal Factors That May Effect Arthritis, anxiety/depression Therapy/Recovery currently controlled by medications. PT-OP-C Subjective Start: 02/20/24 18:22 Freq: Status: Active Protocol: Document 02/23/24 13:02 LRN (Rec: 02/23/24 14:24 LRN [id number]) Patient Questionnaires Lower Extremity Functional Scale LEFS Score 56 LEFS Impairment 20 to 39% Impaired (Score 48- 62) OP-PT Pain Assessment Pain Assessment Grid Paper Pain Assessment Grid Completed Yes Location L knee Pain Location Details Tibial Plateau Intensity 4 Scale Used Numeric (0 - 10) Description Acute,Sharp,Stabbing Description- Other As soon as placing foot on ground pain goes away over time. Walking aches Pain Aggravating Factors Exercise,Walking,Stair Climbing Other Pain Aggravating Factors Downhill walking is painful, uphill not as bad. Other Pain Alleviating Factors Harjeet Hatch PT-OP-G Mobility & Gait Start: 02/20/24 18:22 Freq: Status: Active Protocol: Document 02/23/24 13:02 LRN (Rec: 02/23/24 14:24 LRN [id number]) OP Gait Assessment Gait Gait Assistance Required: Independent Assistive Devices Assistive Device None Gait Deviations General Gait Pattern Lateral Trunk Lean,Wide Based Gait Comments Gait Comments Increased sway, WBing more on RLE. Stair Climbing Evaluation Evaluation Level of Assist On Stairs Independent Devices Stair Climbing Assistive Devices Right Railing Technique/Endurance Stair Climbing Direction Ascend and Descend Stair Climbing Technique Step to Step PT-OP-H Neuro Start: 02/20/24 18:22 Freq: Status: Active Protocol: Document 02/23/24 13:02 LRN (Rec: 02/23/24 14:24 LRN [id number]) Sensation Evaluation Gross Sensation Gross Sensation WNL PT-OP-J Posture/Palpation/Skin Start: 02/20/24 18:22 Freq: Status: Active Protocol: Document 02/23/24 13:02 LRN (Rec: 02/23/24 14:24 LRN [id number]) Posture Evaluation Position Standing Head/C-Spine Posture Forward Head T-Spine Posture Increased Kyphosis L-Spine Posture Increased Lordosis Hip Posture (L) Flexed,(R) Flexed Ankle/Foot Posture (L) Calcaneal Inversion,(R) Calcaneal Inversion Foot Arch (L) High Arch,(R) High Arch Comments Posture Comments Low L shoulder, wide stance. Palpation Assessment Location L knee Palpation Location Tibial plateau Palpation Findings Tenderness PT-OP-K Range of Motion Start: 02/20/24 18:22 Freq: Status: Active Protocol: Document 02/23/24 13:02 LRN (Rec: 02/23/24 14:24 LRN [id number]) Knee Goniometric Range of Motion Knee Right Patient Position Supine Flexion Active (degrees) 125 Hyper-Extension Active 2 Left Patient Position Supine Flexion Active (degrees) 120 Extension Active (degrees) 3 PT-OP-L Special Tests Start: 02/20/24 18:22 Freq: Status: Active Protocol: Document 02/23/24 13:02 LRN (Rec: 02/23/24 14:27 LRN [id number]) Special Tests Lumbar Spine Special Tests Manual Traction Test Results Positive Comments Eliminiation of manfred hip and reduction in L knee pain PT-OP-M Strength Start: 02/20/24 18:22 Freq: Status: Active Protocol: Document 02/23/24 13:02 LRN (Rec: 02/23/24 14:24 LRN [id number]) Hip Strength Hip Manual Muscle Testing Right Comments Strength is 5/5. Left Extension (S1) 3 Fair Abduction 3 Fair Comments Strength is 5/5 except as indicated above. Knee Strength Knee Manual Muscle Testing Right Comments Strength is 5/5. Left Comments Strength is 5/5. Click felt with testing of extension, but not pain noted. Ankle/Foot Strength Ankle and Foot Manual Muscle Testing Right Comments Strength is 5/5 Left Comments Strength is 5/5 PT-OP-Q Treatments Start: 02/20/24 18:22 Freq: Status: Active Protocol: Document 02/23/24 13:02 LRN (Rec: 02/23/24 14:24 LRN [id number]) Therapeutic Exercises Supine Exercises TA tightening Supine Exercise Name Bracing with breath through chest Reps/Minutes 3' Comments Extra time needed to coordinate TA hold with breath . Knee flexion stretch Supine Exercise Name Knee flexion stretch Reps/Minutes 10 SH x 2 QS Supine Exercise Name QS Side left Reps/Minutes 5 SH x 10 Comments Extra time needed for training Manual Therapy Treatment Manual Traction Lumbar Body Position Hooklying Self-Care/Home Management Treatment Education Other Education Discussed results of evaluation, goals, and plan of care (POC) with pt, discussed attendance/cx/dns policy; pt agreeable to goals, attendance /cx/dns policy and POC. PT-OP-T Assessment and Plan Start: 02/20/24 18:22 Freq: Status: Active Protocol: Document 02/23/24 13:02 LRN (Rec: 02/23/24 14:24 LRN [id number]) Physical Therapy Assessment Rehab Potential Rehabilitation Potential Excellent Evaluation Complexity Number of Personal Factors/Comorbidities 1-2 Number of Body Systems Impaired 4 or More Clinical Presentation at Evaluation Evolving Impairments Impairments Gait,Pain,Posture,ROM,Soft Tissue Mobility,Strength Goals Four Impairment Poor core stabilization. Impairment Pt is not able to maintain TA tight with breathing or movement of LE's. Short Term Goal (STG) Pt will be able to perform abdominal bracing with tightening and holding of TA with breathing. STG Duration 4 wks-03/22/24 Pit Shoveler Goal (LTG) Reduce bilateral hip pain with patient being able to stabilize core and maintain improved posturing of the low back (reduced lumbar lordosis) . LTG Duration 12 wks-05/17/24 Three Impairment Decreased L knee AROM is 3- 120 Impairment R knee AROM is 0-125 Detention Goal (LTG) Improve L knee AROM (0-125 deg 's) with improved ability to get up/down off the floor with less pain. LTG Duration 6 wks-04/05/24 Two Impairment L knee pain limiting floor transfer and stair ambulation. Detention Goal (LTG) Decrease pain with stair ambulation. LTG Duration 12 wks-05/17/24 One Impairment Pt lacks appropriate self care HEP. Short Term Goal (STG) Pt will be educated in proper sitting/standing posture. STG Duration 2 wks-03/08/24 Detention Goal (LTG) Pt will be independent in an effective self care HEP for core/hip/L knee strengthening and L knee mobility ex's. LTG Duration 12 wks-05/17/24 Assessment Summary Assessment Pt is a 68 yo female with L knee instability/decreased mobility resulting in pain, and bilateral hip pain that appears to be lumbar in nature . She is not able to tighten and keep her core tight that may lead to instability at the knees. The pt is exercising 5 days a week with active LE ex in the pool and UE ex's 2x/ week. The pt will benefit from skilled physical therapy to promote L knee stability and core stabilization with improved hip/knee strength, reduced L knee pain and improved function. Physical Therapy Plan Frequency and Duration Frequency of Treatment 1x/Week Duration of treatment (weeks) 12 Plan of Care Start Date 02/23/24 Plan of Care End Date 05/17/24 Therapeutic Interventions Therapeutic Interventions Home Exercise Program,Joint Mobilizations,Manual Therapy, Neuromuscular Re-education, Self-Care/Home Management,Soft Tissue Mobilization, Therapeutic Activities, Therapeutic Exercises Modalities Cold Pack/Ice Massage,Electric Stimulation,Hot Packs, Ultrasound Next Visit Focus/Plan Next Note Type Treatment Note Next Visit Plan 8-10 visits for L knee rehab to improve L knee AROM and core/hip/knee stabilization. Next: Review L knee extension stretch (QS) and TA tightening. Ultrasound posterior L knee with extension stretch, f/b strengthening with core stabilized. Manual lumbar traction to end if manfred hip pain. Exer: Strengthening: TA/core , L hip AB/AD/ext, L knee ( avoid rot due to pain until stab achieved). ROM: L knee ext/flex, lumbar flexion/rot. Function: Stairs and floor transfers when stabilization achieved at L knee and core.
--- NOTE | 2024-02-23 15:40 | PT.OPPOC ---
Physical, Occupational & Speech Therapy At [facility] Current Diagnoses Bilateral primary osteoarthritis of knee (02/23/24) Pain in left hip (02/23/24) Pain in left knee (02/23/24) Radiculopathy, lumbar region (02/23/24) Muscle weakness (generalized) (02/23/24) Visit Care Team Role Provider Type Jared Jin MD Attending Provider Physician Family Provider Primary Care Provider Referring Provider Specialty: Family Practice Obstetrics Address: [address] [place] [address], [id number] Email: [email or web address] Plan Of Care PT-OP-T Assessment and Plan Start: 02/20/24 18:22 Freq: Status: Active Protocol: Document 02/23/24 13:02 LRN (Rec: 02/23/24 14:24 LRN [id number]) Physical Therapy Assessment Rehab Potential Rehabilitation Potential Excellent Evaluation Complexity Number of Personal Factors/Comorbidities 1-2 Number of Body Systems Impaired 4 or More Clinical Presentation at Evaluation Evolving Impairments Impairments Gait,Pain,Posture,ROM,Soft Tissue Mobility,Strength Goals Four Impairment Poor core stabilization. Impairment Pt is not able to maintain TA tight with breathing or movement of LE's. Short Term Goal (STG) Pt will be able to perform abdominal bracing with tightening and holding of TA with breathing. STG Duration 4 wks-03/22/24 Skilled Nursing Goal (LTG) Reduce bilateral hip pain with patient being able to stabilize core and maintain improved posturing of the low back (reduced lumbar lordosis) . LTG Duration 12 wks-05/17/24 Three Impairment Decreased L knee AROM is 3- 120 Impairment R knee AROM is 0-125 Skilled Nursing Goal (LTG) Improve L knee AROM (0-125 deg 's) with improved ability to get up/down off the floor with less pain. LTG Duration 6 wks-04/05/24 Two Impairment L knee pain limiting floor transfer and stair ambulation. Transcription Specialist Goal (LTG) Decrease pain with stair ambulation. LTG Duration 12 wks-05/17/24 One Impairment Pt lacks appropriate self care HEP. Short Term Goal (STG) Pt will be educated in proper sitting/standing posture. STG Duration 2 wks-03/08/24 Transcription Specialist Goal (LTG) Pt will be independent in an effective self care HEP for core/hip/L knee strengthening and L knee mobility ex's. LTG Duration 12 wks-05/17/24 Assessment Summary Assessment Pt is a 68 yo female with L knee instability/decreased mobility resulting in pain, and bilateral hip pain that appears to be lumbar in nature . She is not able to tighten and keep her core tight that may lead to instability at the knees. The pt is exercising 5 days a week with active LE ex in the pool and UE ex's 2x/ week. The pt will benefit from skilled physical therapy to promote L knee stability and core stabilization with improved hip/knee strength, reduced L knee pain and improved function. Physical Therapy Plan Frequency and Duration Frequency of Treatment 1x/Week Duration of treatment (weeks) 12 Plan of Care Start Date 02/23/24 Plan of Care End Date 05/17/24 Therapeutic Interventions Therapeutic Interventions Home Exercise Program,Joint Mobilizations,Manual Therapy, Neuromuscular Re-education, Self-Care/Home Management,Soft Tissue Mobilization, Therapeutic Activities, Therapeutic Exercises Modalities Cold Pack/Ice Massage,Electric Stimulation,Hot Packs, Ultrasound Next Visit Focus/Plan Next Note Type Treatment Note Next Visit Plan 8-10 visits for L knee rehab to improve L knee AROM and core/hip/knee stabilization. Next: Review L knee extension stretch (QS) and TA tightening. Ultrasound posterior L knee with extension stretch, f/b strengthening with core stabilized. Manual lumbar traction to end if manfred hip pain. Exer: Strengthening: TA/core , L hip AB/AD/ext, L knee ( avoid rot due to pain until stab achieved). ROM: L knee ext/flex, lumbar flexion/rot. Function: Stairs and floor transfers when stabilization achieved at L knee and core. Plan of Care Dates Plan of Care Start Date 02/23/24 Plan of Care End Date 05/17/24 Electronically Signed by: Nicolette Ribeiro, PT 02/23/24 [id number] If you are in agreement with this Plan of Care, please return a signed and dated copy. I have reviewed this Plan of Care and certify that the skilled therapy services above are required to meet the patient?s needs. Physician Signature Date Printed Name and Credentials Clinical Instructor Signature Printed Name and Credentials
--- NOTE | 2024-02-27 11:01 | PT.OTN ---
Current Diagnoses Bilateral primary osteoarthritis of knee (02/27/24) Pain in left hip (02/27/24) Pain in left knee (02/27/24) Radiculopathy, lumbar region (02/27/24) Muscle weakness (generalized) (02/27/24) Physical Therapy Treatment Note PT-OP-A Visit Information Start: 02/20/24 18:22 Freq: Status: Active Protocol: Document 02/27/24 09:07 LRN (Rec: 02/27/24 09:48 LRN [id number]) Out-Patient Physical Therapy Visit Information Visit Information Visit Type Treatment Note Visit Start Time 09:07 Visit Stop Time 09:47 Visit Number 2 Evaluation Information Evaluation Date 02/23/24 Precautions Precautions Arthritis, anxiety/depression controlled by med. R ankle surgery 2002 for fx, manfred feet surgery to remove nerves from top of both feet 15 yrs ago. PT-OP-B Current Condition Start: 02/20/24 18:22 Freq: Status: Active Protocol: Document 02/23/24 13:02 LRN (Rec: 02/23/24 14:24 LRN [id number]) Current Condition History of Current Condition Onset Date 2 yrs ago Current Complaints L knee pain with stairs and transfer from the floor History of Current Condition Pt reports osteoarthritis of L knee by rat poisoner who she saw for her R wrist. States she goes to the pool for exercise. Her L knee pain has worsened over the last 2 yrs notable with going up/down stairs. She has had L knee pain for 20 yrs. She thought it was a ligament problem, but it is osteoarthritis and bone spurs. States she has R knee pain with ER of the hip in the pool She doesn't want to give up on pool exercise. Prior Treatments and Tests None. Does pool exercises 3x/ week and [employer] 2x/ wk. Treatment Goals Patient/Caregiver Goals Pt referred to PT; therefore she has no specific goal except to reduce pain with transfers from the floor and with stair ambulation (ascend and descend), and strengthen the core. Pt agreeable to HEP . Personal Factors Other Personal Factors That May Effect Arthritis, anxiety/depression Therapy/Recovery currently controlled by medications. PT-OP-C Subjective Start: 02/20/24 18:22 Freq: Status: Active Protocol: Document 02/27/24 09:07 LRN (Rec: 02/27/24 09:48 LRN [id number]) OP-PT Subjective Patient Comments Patient Comments No changes. Easier to do belly ex (TA) vs the foot ( heel slide). PT-OP-G Mobility & Gait Start: 02/20/24 18:22 Freq: Status: Active Protocol: Document 02/23/24 13:02 LRN (Rec: 02/23/24 14:24 LRN [id number]) OP Gait Assessment Gait Gait Assistance Required: Independent Assistive Devices Assistive Device None Gait Deviations General Gait Pattern Lateral Trunk Lean,Wide Based Gait Comments Gait Comments Increased sway, WBing more on RLE. Stair Climbing Evaluation Evaluation Level of Assist On Stairs Independent Devices Stair Climbing Assistive Devices Right Railing Technique/Endurance Stair Climbing Direction Ascend and Descend Stair Climbing Technique Step to Step PT-OP-H Neuro Start: 02/20/24 18:22 Freq: Status: Active Protocol: Document 02/23/24 13:02 LRN (Rec: 02/23/24 14:24 LRN [id number]) Sensation Evaluation Gross Sensation Gross Sensation WNL PT-OP-J Posture/Palpation/Skin Start: 02/20/24 18:22 Freq: Status: Active Protocol: Document 02/23/24 13:02 LRN (Rec: 02/23/24 14:24 LRN [id number]) Posture Evaluation Position Standing Head/C-Spine Posture Forward Head T-Spine Posture Increased Kyphosis L-Spine Posture Increased Lordosis Hip Posture (L) Flexed,(R) Flexed Ankle/Foot Posture (L) Calcaneal Inversion,(R) Calcaneal Inversion Foot Arch (L) High Arch,(R) High Arch Comments Posture Comments Low L shoulder, wide stance. Palpation Assessment Location L knee Palpation Location Tibial plateau Palpation Findings Tenderness PT-OP-K Range of Motion Start: 02/20/24 18:22 Freq: Status: Active Protocol: Document 02/27/24 09:07 LRN (Rec: 02/27/24 09:48 LRN [id number]) Knee Goniometric Range of Motion Knee Right Patient Position Supine Flexion Active (degrees) 125 Left Patient Position Supine Flexion Passive (degrees) 128 PT-OP-L Special Tests Start: 02/20/24 18:22 Freq: Status: Active Protocol: Document 02/23/24 13:02 LRN (Rec: 02/23/24 14:27 LRN [id number]) Special Tests Lumbar Spine Special Tests Manual Traction Test Results Positive Comments Eliminiation of manfred hip and reduction in L knee pain PT-OP-M Strength Start: 02/20/24 18:22 Freq: Status: Active Protocol: Document 02/23/24 13:02 LRN (Rec: 02/23/24 14:24 LRN [id number]) Hip Strength Hip Manual Muscle Testing Right Comments Strength is 5/5. Left Extension (S1) 3 Fair Abduction 3 Fair Comments Strength is 5/5 except as indicated above. Knee Strength Knee Manual Muscle Testing Right Comments Strength is 5/5. Left Comments Strength is 5/5. Click felt with testing of extension, but not pain noted. Ankle/Foot Strength Ankle and Foot Manual Muscle Testing Right Comments Strength is 5/5 Left Comments Strength is 5/5 PT-OP-Q Treatments Start: 02/20/24 18:22 Freq: Status: Active Protocol: Document 02/27/24 09:07 LRN (Rec: 02/27/24 09:48 LRN [id number]) Therapeutic Exercises Supine Exercises AA L knee flex Supine Exercise Name AAROM with strap. AROM ROM taken Side left Reps/Minutes 10' Comments Much extra time taken to get proper positioning & pt educ for exercise. SLR Side left Reps/Minutes 4' TA tightening Supine Exercise Name Bracing with breath through chest Reps/Minutes 3' Comments Extra time needed to coordinate TA hold with breath . Knee flexion stretch Supine Exercise Name Knee flexion stretch. PROM taken Reps/Minutes 11' Comments Much extra time taken to get proper positioning & pt educ for exercise. QS Supine Exercise Name QS -final position is with hand towel and 3 fold of Towel under knee Side left Resistance 1 rest period needed Reps/Minutes 6' Comments Much effort to get posterior knee stretch. Cues to relax ankle, toe fwd. Sidelying Exercises TA tightening Sidelying Exercise Name Awareness trng and TA holding trng Reps/Minutes 3 breath hold x 10 Comments Cued to draw TA in w/in & out breath, but breath thru chest Self-Care/Home Management Treatment Education Patient Education Home Exercise Program Other Education I/S pt to do active L knee ROM after stretches. I/S pt to do sidelie TA tightening ex instead of sup. PT-OP-T Assessment and Plan Start: 02/20/24 18:22 Freq: Status: Active Protocol: Document 02/27/24 09:07 LRN (Rec: 02/27/24 09:48 LRN [id number]) Physical Therapy Assessment Goals Four Impairment Poor core stabilization. Impairment Pt is not able to maintain TA tight with breathing or movement of LE's. Short Term Goal (STG) Pt will be able to perform abdominal bracing with tightening and holding of TA with breathing. STG Duration 4 wks-03/22/24 [facility] Goal (LTG) Reduce bilateral hip pain with patient being able to stabilize core and maintain improved posturing of the low back (reduced lumbar lordosis) . LTG Duration 12 wks-05/17/24 Three Impairment Decreased L knee AROM is 3- 120 Impairment R knee AROM is 0-125 Personnel Placement Specialist Goal (LTG) Improve L knee AROM (0-125 deg 's) with improved ability to get up/down off the floor with less pain. 02/27/24: L knee AROM after stretching (for first time) is 0-125 deg's. LTG Duration 6 wks-04/05/24 partially met goal 02/27/24 (need up/dn off floor w/<pain) Two Impairment L knee pain limiting floor transfer and stair ambulation. [facility] Goal (LTG) Decrease pain with stair ambulation. LTG Duration 12 wks-05/17/24 One Impairment Pt lacks appropriate self care HEP. Short Term Goal (STG) Pt will be educated in proper sitting/standing posture. STG Duration 2 wks-03/08/24 Personnel Placement Specialist Goal (LTG) Pt will be independent in an effective self care HEP for core/hip/L knee strengthening and L knee mobility ex's. 02/27/24 LTG Duration 12 wks-05/17/24 Assessment Summary Assessment Pt is a 68 yo female with L knee instability/decreased mobility resulting in pain, and bilateral hip pain that appears to be lumbar in nature . Today pt improved with L knee flexion after stretch and ex to 128 deg's flexion ( normal), for first time, extension restricted compared to R knee. US not needed for posterior knee stretch today. TA tightening weaker in R sidelie. Physical Therapy Plan Frequency and Duration Frequency of Treatment 1x/Week Duration of treatment (weeks) 12 Plan of Care Start Date 02/23/24 Plan of Care End Date 05/17/24 Next Visit Focus/Plan Next Note Type Treatment Note Next Visit Plan 8-10 visits total for L knee rehab to improve L knee AROM and core/hip/knee stabilization. Next: Assess to start L knee AROM, then check ability to get up/dn from floor. Educate in proper sitting/standing posture (STG 1). Exer: Strengthening: TA/core , L hip AB/AD/ext, L knee ( avoid rot due to pain until stab achieved). Function: Stairs and floor transfers when stabilization achieved at L knee and core. Modality: Ultrasound posterior L knee with extension stretch if needed. POC: L knee rehab (ROM L knee ext/flex) with core stabilized. Lumbar flexion/ rot & Manual lumbar traction to end if manfred hip pain.
--- NOTE | 2024-03-05 10:48 | PT.OTN ---
Current Diagnoses Bilateral primary osteoarthritis of knee (03/05/24) Pain in left hip (03/05/24) Pain in left knee (03/05/24) Radiculopathy, lumbar region (03/05/24) Muscle weakness (generalized) (03/05/24) Physical Therapy Treatment Note PT-OP-A Visit Information Start: 02/20/24 18:22 Freq: Status: Active Protocol: Document 03/05/24 09:48 SW (Rec: 03/05/24 10:47 SW [id number]) Out-Patient Physical Therapy Visit Information Visit Information Visit Type Treatment Note Visit Start Time 09:45 Visit Stop Time 10:25 Visit Number 3 Number of TOPOGRAPHICAL DRAFTER Visits 1 Precautions Precautions Arthritis, anxiety/depression controlled by med. R ankle surgery 2002 for fx, manfred feet surgery to remove nerves from top of both feet 15 yrs ago. PT-OP-B Current Condition Start: 02/20/24 18:22 Freq: Status: Active Protocol: Document 02/23/24 13:02 LRN (Rec: 02/23/24 14:24 LRN [id number]) Current Condition History of Current Condition Onset Date 2 yrs ago Current Complaints L knee pain with stairs and transfer from the floor History of Current Condition Pt reports osteoarthritis of L knee by paint sprayer sandblaster who she saw for her R wrist. States she goes to the pool for exercise. Her L knee pain has worsened over the last 2 yrs notable with going up/down stairs. She has had L knee pain for 20 yrs. She thought it was a ligament problem, but it is osteoarthritis and bone spurs. States she has R knee pain with ER of the hip in the pool She doesn't want to give up on pool exercise. Prior Treatments and Tests None. Does pool exercises 3x/ week and [employer] fitness 2x/ wk. Treatment Goals Patient/Caregiver Goals Pt referred to PT; therefore she has no specific goal except to reduce pain with transfers from the floor and with stair ambulation (ascend and descend), and strengthen the core. Pt agreeable to HEP . Personal Factors Other Personal Factors That May Effect Arthritis, anxiety/depression Therapy/Recovery currently controlled by medications. PT-OP-C Subjective Start: 02/20/24 18:22 Freq: Status: Active Protocol: Document 03/05/24 09:48 SW (Rec: 03/05/24 10:47 SW [id number]) OP-PT Subjective Patient Comments Patient Comments No changes to report. Doing pool 3 x week [employer] 2 x week. PT-OP-G Mobility & Gait Start: 02/20/24 18:22 Freq: Status: Active Protocol: Document 02/23/24 13:02 LRN (Rec: 02/23/24 14:24 LRN [id number]) OP Gait Assessment Gait Gait Assistance Required: Independent Assistive Devices Assistive Device None Gait Deviations General Gait Pattern Lateral Trunk Lean,Wide Based Gait Comments Gait Comments Increased sway, WBing more on RLE. Stair Climbing Evaluation Evaluation Level of Assist On Stairs Independent Devices Stair Climbing Assistive Devices Right Railing Technique/Endurance Stair Climbing Direction Ascend and Descend Stair Climbing Technique Step to Step PT-OP-H Neuro Start: 02/20/24 18:22 Freq: Status: Active Protocol: Document 02/23/24 13:02 LRN (Rec: 02/23/24 14:24 LRN [id number]) Sensation Evaluation Gross Sensation Gross Sensation WNL PT-OP-J Posture/Palpation/Skin Start: 02/20/24 18:22 Freq: Status: Active Protocol: Document 02/23/24 13:02 LRN (Rec: 02/23/24 14:24 LRN [id number]) Posture Evaluation Position Standing Head/C-Spine Posture Forward Head T-Spine Posture Increased Kyphosis L-Spine Posture Increased Lordosis Hip Posture (L) Flexed,(R) Flexed Ankle/Foot Posture (L) Calcaneal Inversion,(R) Calcaneal Inversion Foot Arch (L) High Arch,(R) High Arch Comments Posture Comments Low L shoulder, wide stance. Palpation Assessment Location L knee Palpation Location Tibial plateau Palpation Findings Tenderness PT-OP-K Range of Motion Start: 02/20/24 18:22 Freq: Status: Active Protocol: Document 02/27/24 09:07 LRN (Rec: 02/27/24 09:48 LRN [id number]) Knee Goniometric Range of Motion Knee Right Patient Position Supine Flexion Active (degrees) 125 Left Patient Position Supine Flexion Passive (degrees) 128 PT-OP-L Special Tests Start: 02/20/24 18:22 Freq: Status: Active Protocol: Document 02/23/24 13:02 LRN (Rec: 04/05/24 14:27 LRN [id number]) Special Tests Lumbar Spine Special Tests Manual Traction Test Results Positive Comments Eliminiation of manfred hip and reduction in L knee pain PT-OP-M Strength Start: 02/20/24 18:22 Freq: Status: Active Protocol: Document 02/23/24 13:02 LRN (Rec: 02/23/24 14:24 LRN [id number]) Hip Strength Hip Manual Muscle Testing Right Comments Strength is 5/5. Left Extension (S1) 3 Fair Abduction 3 Fair Comments Strength is 5/5 except as indicated above. Knee Strength Knee Manual Muscle Testing Right Comments Strength is 5/5. Left Comments Strength is 5/5. Click felt with testing of extension, but not pain noted. Ankle/Foot Strength Ankle and Foot Manual Muscle Testing Right Comments Strength is 5/5 Left Comments Strength is 5/5 PT-OP-Q Treatments Start: 02/20/24 18:22 Freq: Status: Active Protocol: Document 03/05/24 09:48 SW (Rec: 03/05/24 10:47 SW [id number]) Therapeutic Exercises Supine Exercises AA L knee flex Supine Exercise Name AAROM with strap. AROM ROM taken Side left Reps/Minutes 10' Comments initial cues required for positioning and execution of ex SLR Side left Reps/Minutes 4' Comments cued for slow, control, core stabilization TA tightening Supine Exercise Name Bracing with breath through chest Reps/Minutes 1' Comments Extra time needed to coordinate TA hold with breath . Knee flexion stretch Supine Exercise Name Knee flexion stretch. PROM taken Comments extra time taken to get proper positioning & pt educ for exercise. QS Supine Exercise Name QS -final position is with hand towel and 3 fold of Towel under knee Side left Resistance 1 rest period needed Reps/Minutes 6' Comments Much effort to get posterior knee stretch. Cues to relax ankle, toe fwd. Sidelying Exercises Hip Add Sidelying Exercise Name Hip Add Side left Resistance AROM Reps/Minutes 3 x 8 Comments cues for slow control, core stabilization Hip abd Sidelying Exercise Name Hip Abd Side left Resistance AROM Reps/Minutes 3 x 8 Comments cues for slow control, core stabilization TA tightening Sidelying Exercise Name Awareness trng and TA holding trng Reps/Minutes 3 breath hold x 10 Comments Cued to draw TA in w/in & out breath, but breath thru chest Self-Care/Home Management Treatment Education Patient Education Posture Other Education Sit/stand posture- issued HO on correct sit/stand posture. Wall posture for tactile feedback. PT-OP-T Assessment and Plan Start: 02/20/24 18:22 Freq: Status: Active Protocol: Document 03/05/24 09:48 SW (Rec: 03/05/24 10:47 SW [id number]) Physical Therapy Assessment Goals Four Impairment Poor core stabilization. Impairment Pt is not able to maintain TA tight with breathing or movement of LE's. Short Term Goal (STG) Pt will be able to perform abdominal bracing with tightening and holding of TA with breathing. STG Duration 4 wks-03/22/24 Surgical Specialist Goal (LTG) Reduce bilateral hip pain with patient being able to stabilize core and maintain improved posturing of the low back (reduced lumbar lordosis) . LTG Duration 12 wks-05/17/24 Three Impairment Decreased L knee AROM is 3- 120 Impairment R knee AROM is 0-125 Surgical Specialist Goal (LTG) Improve L knee AROM (0-125 deg 's) with improved ability to get up/down off the floor with less pain. 02/27/24: L knee AROM after stretching (for first time) is 0-125 deg's. LTG Duration 6 wks-04/05/24 partially met goal 02/27/24 (need up/dn off floor w/<pain) Two Impairment L knee pain limiting floor transfer and stair ambulation. Intermediate Goal (LTG) Decrease pain with stair ambulation. LTG Duration 12 wks-05/17/24 One Impairment Pt lacks appropriate self care HEP. Short Term Goal (STG) Pt will be educated in proper sitting/standing posture. 03/05/24- pt education on sit/ stand posture, HO given. STG Duration 2 wks-03/08/24 Intermediate Goal (LTG) Pt will be independent in an effective self care HEP for core/hip/L knee strengthening and L knee mobility ex's. 02/27/24 03/05/24- Hip abd/add strength ex, HEP HO given LTG Duration 12 wks-05/17/24 Assessment Summary Assessment Pt AROM knee felxion 129 degrees. Progressed pt with addition of hip strengthening exercises, issued HEP HO. Pt tolerated session well, reports of fatigue with new hip exercises, denies pain. Pt required verbal cues with exercises for slow controlled movement. Educated patient on sit/stand postural alignment this session, issued HEP HO. Plan to review/assess pt tolerance on new HEP ex next session and further education on sit/stand posture as able. Physical Therapy Plan Frequency and Duration Frequency of Treatment 1x/Week Duration of treatment (weeks) 12 Plan of Care Start Date 02/23/24 Plan of Care End Date 05/17/24 Therapeutic Interventions Therapeutic Interventions Home Exercise Program,Joint Mobilizations,Manual Therapy, Neuromuscular Re-education, Self-Care/Home Management,Soft Tissue Mobilization, Therapeutic Activities, Therapeutic Exercises Modalities Cold Pack/Ice Massage,Electric Stimulation,Hot Packs, Ultrasound Next Visit Focus/Plan Next Note Type Treatment Note Next Visit Plan 8-10 visits total for L knee rehab to improve L knee AROM and core/hip/knee stabilization. Next: Assess to start L knee AROM, then check ability to get up/dn from floor. Educate in proper sitting/standing posture (STG 1). Exer: Strengthening: TA/core , L hip AB/AD/ext, L knee ( avoid rot due to pain until stab achieved). Function: Stairs and floor transfers when stabilization achieved at L knee and core. Modality: Ultrasound posterior L knee with extension stretch if needed. POC: L knee rehab (ROM L knee ext/flex) with core stabilized. Lumbar flexion/ rot & Manual lumbar traction to end if manfred hip pain.
--- NOTE | 2024-03-19 15:11 | PT.OTN ---
Current Diagnoses Bilateral primary osteoarthritis of knee (03/19/24) Pain in left hip (03/19/24) Pain in left knee (03/19/24) Radiculopathy, lumbar region (03/19/24) Muscle weakness (generalized) (03/19/24) Physical Therapy Treatment Note PT-OP-A Visit Information Start: 02/20/24 18:22 Freq: Status: Active Protocol: Document 03/19/24 12:58 SW (Rec: 03/19/24 13:47 SW [id number]) Out-Patient Physical Therapy Visit Information Visit Information Visit Type Treatment Note Visit Start Time 13:00 Visit Stop Time 13:43 Visit Number 5 Number of SUPERVISOR SCREEN PRINTING Visits 3 Precautions Precautions Arthritis, anxiety/depression controlled by med. R ankle surgery 2002 for fx, manfred feet surgery to remove nerves from top of both feet 15 yrs ago. PT-OP-B Current Condition Start: 02/20/24 18:22 Freq: Status: Active Protocol: Document 02/23/24 13:02 LRN (Rec: 02/23/24 14:24 LRN [id number]) Current Condition History of Current Condition Onset Date 2 yrs ago Current Complaints L knee pain with stairs and transfer from the floor History of Current Condition Pt reports osteoarthritis of L knee by nut culler who she saw for her R wrist. States she goes to the pool for exercise. Her L knee pain has worsened over the last 2 yrs notable with going up/down stairs. She has had L knee pain for 20 yrs. She thought it was a ligament problem, but it is osteoarthritis and bone spurs. States she has R knee pain with ER of the hip in the pool She doesn't want to give up on pool exercise. Prior Treatments and Tests None. Does pool exercises 3x/ week and [email or web address] fitness 2x/ wk. Treatment Goals Patient/Caregiver Goals Pt referred to PT; therefore she has no specific goal except to reduce pain with transfers from the floor and with stair ambulation (ascend and descend), and strengthen the core. Pt agreeable to HEP . Personal Factors Other Personal Factors That May Effect Arthritis, anxiety/depression Therapy/Recovery currently controlled by medications. PT-OP-C Subjective Start: 02/20/24 18:22 Freq: Status: Active Protocol: Document 03/19/24 12:58 SW (Rec: 03/19/24 13:47 SW [id number]) OP-PT Subjective Patient Comments Patient Comments Pt reports feeling pretty good , went to gym today, did all the machines for arms, and a little for LE. No pain to report today. PT-OP-G Mobility & Gait Start: 02/20/24 18:22 Freq: Status: Active Protocol: Document 02/23/24 13:02 LRN (Rec: 02/23/24 14:24 LRN [id number]) OP Gait Assessment Gait Gait Assistance Required: Independent Assistive Devices Assistive Device None Gait Deviations General Gait Pattern Lateral Trunk Lean,Wide Based Gait Comments Gait Comments Increased sway, WBing more on RLE. Stair Climbing Evaluation Evaluation Level of Assist On Stairs Independent Devices Stair Climbing Assistive Devices Right Railing Technique/Endurance Stair Climbing Direction Ascend and Descend Stair Climbing Technique Step to Step PT-OP-H Neuro Start: 02/20/24 18:22 Freq: Status: Active Protocol: Document 02/23/24 13:02 LRN (Rec: 02/23/24 14:24 LRN [id number]) Sensation Evaluation Gross Sensation Gross Sensation WNL PT-OP-J Posture/Palpation/Skin Start: 02/20/24 18:22 Freq: Status: Active Protocol: Document 02/23/24 13:02 LRN (Rec: 02/23/24 14:24 LRN [id number]) Posture Evaluation Position Standing Head/C-Spine Posture Forward Head T-Spine Posture Increased Kyphosis L-Spine Posture Increased Lordosis Hip Posture (L) Flexed,(R) Flexed Ankle/Foot Posture (L) Calcaneal Inversion,(R) Calcaneal Inversion Foot Arch (L) High Arch,(R) High Arch Comments Posture Comments Low L shoulder, wide stance. Palpation Assessment Location L knee Palpation Location Tibial plateau Palpation Findings Tenderness PT-OP-K Range of Motion Start: 02/20/24 18:22 Freq: Status: Active Protocol: Document 02/27/24 09:07 LRN (Rec: 02/27/24 09:48 LRN [id number]) Knee Goniometric Range of Motion Knee Right Patient Position Supine Flexion Active (degrees) 125 Left Patient Position Supine Flexion Passive (degrees) 128 PT-OP-L Special Tests Start: 02/20/24 18:22 Freq: Status: Active Protocol: Document 02/23/24 13:02 LRN (Rec: 02/23/24 14:27 LRN [id number]) Special Tests Lumbar Spine Special Tests Manual Traction Test Results Positive Comments Eliminiation of manfred hip and reduction in L knee pain PT-OP-M Strength Start: 02/20/24 18:22 Freq: Status: Active Protocol: Document 02/23/24 13:02 LRN (Rec: 02/23/24 14:24 LRN [id number]) Hip Strength Hip Manual Muscle Testing Right Comments Strength is 5/5. Left Extension (S1) 3 Fair Abduction 3 Fair Comments Strength is 5/5 except as indicated above. Knee Strength Knee Manual Muscle Testing Right Comments Strength is 5/5. Left Comments Strength is 5/5. Click felt with testing of extension, but not pain noted. Ankle/Foot Strength Ankle and Foot Manual Muscle Testing Right Comments Strength is 5/5 Left Comments Strength is 5/5 PT-OP-Q Treatments Start: 02/20/24 18:22 Freq: Status: Active Protocol: Document 03/19/24 12:58 SW (Rec: 03/19/24 13:47 SW [id number]) Therapeutic Exercises Supine Exercises AA L knee flex Supine Exercise Name AAROM with strap. AROM ROM taken Side left Reps/Minutes 10' Comments initial cues required for positioning and execution of ex SLR Side bilateral Reps/Minutes 4' Comments cues for eccentric control, core stabilization TA tightening Supine Exercise Name TrA activation Side bilateral Resistance sidelying Equipment Used self-monitoring TrA medial to ASIS Reps/Minutes 2' Comments Extra time needed to coordinate TA hold with breath . Prone Exercises Hip Ext Prone Exercise Name Trialed in Prone> Standing Side bilateral Equipment Used @ rail Reps/Minutes prone x3, standing 2 x 10 Comments cues for form and eccentric control, pt reports fatigue, denies pain Sidelying Exercises Hip Ext Sidelying Exercise Name Trialed prone> Standing Hip Add Sidelying Exercise Name Hip Add - HEP review Side left Resistance AROM Reps/Minutes 2x10 Comments cues for TrA, no breathholding , movement w/ breath Hip abd Sidelying Exercise Name Hip Abd (standing today) Side bilateral Resistance AROM Reps/Minutes 2x10 Comments Cues for eccentric control, form, Standing Exercises Knee Flex stretch Standing Exercise Name knee flexion strtetch Side bilateral Equipment Used stair Reps/Minutes 2' Other Exercises STS Other Exercise Name chair squats Equipment Used mesh chair> plinth for decreased squat depth Reps/Minutes 2 x 10 Comments cues for squat mechanics, hip hinge, eccentric control PT-OP-T Assessment and Plan Start: 02/20/24 18:22 Freq: Status: Active Protocol: Document 03/19/24 12:58 SW (Rec: 03/19/24 13:47 SW [id number]) Physical Therapy Assessment Goals Four Impairment Poor core stabilization. Impairment Pt is not able to maintain TA tight with breathing or movement of LE's. Short Term Goal (STG) Pt will be able to perform abdominal bracing with tightening and holding of TA with breathing. STG Duration 4 wks-03/22/24 [employer] Goal (LTG) Reduce bilateral hip pain with patient being able to stabilize core and maintain improved posturing of the low back (reduced lumbar lordosis) . LTG Duration 12 wks-05/17/24 Three Impairment Decreased L knee AROM is 3- 120 Impairment R knee AROM is 0-125 Care Home Goal (LTG) Improve L knee AROM (0-125 deg 's) with improved ability to get up/down off the floor with less pain. 02/27/24: L knee AROM after stretching (for first time) is 0-125 deg's. LTG Duration 6 wks-04/05/24 partially met goal 02/27/24 (need up/dn off floor w/<pain) Two Impairment L knee pain limiting floor transfer and stair ambulation. Inspector [employer] Goal (LTG) Decrease pain with stair ambulation. LTG Duration 12 wks-05/17/24 One Impairment Pt lacks appropriate self care HEP. Short Term Goal (STG) Pt will be educated in proper sitting/standing posture. 03/05/24- pt education on sit/ stand posture, HO given. STG Duration 2 wks-03/08/24 Care Home Goal (LTG) Pt will be independent in an effective self care HEP for core/hip/L knee strengthening and L knee mobility ex's. 02/27/24 03/05/24- Hip abd/add strength ex, HEP HO given 03/19/24- Hip Ext, pt denied HO LTG Duration 12 wks-05/17/24 Assessment Summary Assessment Pt started at 121 degrees of AROM knee flex at begininning of session, increased range to 126 degrees AROM flex post session. Pt tolerated exercises well. Intitiated hip ext strength this session, trialed in prone, tolerated better in standing, issued HEP . Cues throughout session for slower, controlled movements. Physical Therapy Plan Frequency and Duration Frequency of Treatment 1x/Week Duration of treatment (weeks) 12 Plan of Care Start Date 02/23/24 Plan of Care End Date 05/17/24 Therapeutic Interventions Therapeutic Interventions Home Exercise Program,Joint Mobilizations,Manual Therapy, Neuromuscular Re-education, Self-Care/Home Management,Soft Tissue Mobilization, Therapeutic Activities, Therapeutic Exercises Modalities Cold Pack/Ice Massage,Electric Stimulation,Hot Packs, Ultrasound Next Visit Focus/Plan Next Note Type Treatment Note Next Visit Plan 8-10 visits total for L knee rehab to improve L knee AROM and core/hip/knee stabilization. Next: Assess to start L knee AROM, then check ability to get up/dn from floor. Educate in proper sitting/standing posture (STG 1). Exer: Strengthening: TA/core , L hip AB/AD/ext (Issued HEP 03/05/24, 03/19/24), L knee ( avoid rot due to pain until stab achieved). Function: Stairs and floor transfers when stabilization achieved at L knee and core. Modality: Ultrasound posterior L knee with extension stretch if needed. POC: L knee rehab (ROM L knee ext/flex) with core stabilized. Lumbar flexion/ rot & Manual lumbar traction to end if manfred hip pain.
--- NOTE | 2024-03-26 16:37 | PT.OTN ---
Current Diagnoses Bilateral primary osteoarthritis of knee (03/26/24) Pain in left hip (03/26/24) Pain in left knee (03/26/24) Radiculopathy, lumbar region (03/26/24) Muscle weakness (generalized) (03/26/24) Physical Therapy Treatment Note PT-OP-A Visit Information Start: 02/20/24 18:22 Freq: Status: Active Protocol: Document 03/26/24 13:45 SW (Rec: 03/26/24 14:38 SW [id number]) Out-Patient Physical Therapy Visit Information Visit Information Visit Type Treatment Note Visit Start Time 13:46 Visit Stop Time 14:25 Visit Number 6 Number of DIRECTOR DATA MANAGEMENT Visits 4 Precautions Precautions Arthritis, anxiety/depression controlled by med. R ankle surgery 2002 for fx, manfred feet surgery to remove nerves from top of both feet 15 yrs ago. PT-OP-B Current Condition Start: 02/20/24 18:22 Freq: Status: Active Protocol: Document 02/23/24 13:02 LRN (Rec: 02/23/24 14:24 LRN [id number]) Current Condition History of Current Condition Onset Date 2 yrs ago Current Complaints L knee pain with stairs and transfer from the floor History of Current Condition Pt reports osteoarthritis of L knee by photoengraving sketch maker who she saw for her R wrist. States she goes to the pool for exercise. Her L knee pain has worsened over the last 2 yrs notable with going up/down stairs. She has had L knee pain for 20 yrs. She thought it was a ligament problem, but it is osteoarthritis and bone spurs. States she has R knee pain with ER of the hip in the pool She doesn't want to give up on pool exercise. Prior Treatments and Tests None. Does pool exercises 3x/ week and [employer] 2x/ wk. Treatment Goals Patient/Caregiver Goals Pt referred to PT; therefore she has no specific goal except to reduce pain with transfers from the floor and with stair ambulation (ascend and descend), and strengthen the core. Pt agreeable to HEP . Personal Factors Other Personal Factors That May Effect Arthritis, anxiety/depression Therapy/Recovery currently controlled by medications. PT-OP-C Subjective Start: 02/20/24 18:22 Freq: Status: Active Protocol: Document 03/26/24 13:45 SW (Rec: 03/26/24 14:38 SW [id number]) OP-PT Subjective Patient Comments Patient Comments Pt reports falling [email or web address], tripped on curb on right foot , fell on L knee and all of LLE. Patient Reported Progress Pn level PT-OP-G Mobility & Gait Start: 02/20/24 18:22 Freq: Status: Active Protocol: Document 02/23/24 13:02 LRN (Rec: 02/23/24 14:24 LRN [id number]) OP Gait Assessment Gait Gait Assistance Required: Independent Assistive Devices Assistive Device None Gait Deviations General Gait Pattern Lateral Trunk Lean,Wide Based Gait Comments Gait Comments Increased sway, WBing more on RLE. Stair Climbing Evaluation Evaluation Level of Assist On Stairs Independent Devices Stair Climbing Assistive Devices Right Railing Technique/Endurance Stair Climbing Direction Ascend and Descend Stair Climbing Technique Step to Step PT-OP-H Neuro Start: 02/20/24 18:22 Freq: Status: Active Protocol: Document 02/23/24 13:02 LRN (Rec: 02/23/24 14:24 LRN [id number]) Sensation Evaluation Gross Sensation Gross Sensation WNL PT-OP-J Posture/Palpation/Skin Start: 02/20/24 18:22 Freq: Status: Active Protocol: Document 02/23/24 13:02 LRN (Rec: 02/23/24 14:24 LRN [id number]) Posture Evaluation Position Standing Head/C-Spine Posture Forward Head T-Spine Posture Increased Kyphosis L-Spine Posture Increased Lordosis Hip Posture (L) Flexed,(R) Flexed Ankle/Foot Posture (L) Calcaneal Inversion,(R) Calcaneal Inversion Foot Arch (L) High Arch,(R) High Arch Comments Posture Comments Low L shoulder, wide stance. Palpation Assessment Location L knee Palpation Location Tibial plateau Palpation Findings Tenderness PT-OP-K Range of Motion Start: 02/20/24 18:22 Freq: Status: Active Protocol: Document 02/27/24 09:07 LRN (Rec: 02/27/24 09:48 LRN [id number]) Knee Goniometric Range of Motion Knee Right Patient Position Supine Flexion Active (degrees) 125 Left Patient Position Supine Flexion Passive (degrees) 128 PT-OP-L Special Tests Start: 02/20/24 18:22 Freq: Status: Active Protocol: Document 02/23/24 13:02 LRN (Rec: 02/23/24 14:27 LRN [id number]) Special Tests Lumbar Spine Special Tests Manual Traction Test Results Positive Comments Eliminiation of manfred hip and reduction in L knee pain PT-OP-M Strength Start: 02/20/24 18:22 Freq: Status: Active Protocol: Document 02/23/24 13:02 LRN (Rec: 02/23/24 14:24 LRN [id number]) Hip Strength Hip Manual Muscle Testing Right Comments Strength is 5/5. Left Extension (S1) 3 Fair Abduction 3 Fair Comments Strength is 5/5 except as indicated above. Knee Strength Knee Manual Muscle Testing Right Comments Strength is 5/5. Left Comments Strength is 5/5. Click felt with testing of extension, but not pain noted. Ankle/Foot Strength Ankle and Foot Manual Muscle Testing Right Comments Strength is 5/5 Left Comments Strength is 5/5 PT-OP-Q Treatments Start: 02/20/24 18:22 Freq: Status: Active Protocol: Document 03/26/24 13:45 SW (Rec: 03/26/24 14:38 SW [id number]) Manual Therapy Treatment Soft Tissue Mobilization Quad/HS Body Location quad, HS, TFL, calf Mobilization Type Myofascial Release,Sustained Pressure,Trigger Point Release Intensity/Depth superficial>moderate Body Position Supine Comments multiple palpable trigger points in quad Manual Techniques AAROM Type flex/ext Body Location L knee Body Position Supine Reps/Duration 11' Comments PROM>AAROM PT-OP-R Modalities Start: 02/20/24 18:22 Freq: Status: Active Protocol: Document 03/26/24 13:45 SW (Rec: 03/26/24 16:37 SW [id number]) Hot Pack/Cold Pack Treatment Cold Pack Location L knee Patient Position Supine Patient Tolerance Good Comments bolster under LEs, velasquez within reach PT-OP-T Assessment and Plan Start: 02/20/24 18:22 Freq: Status: Active Protocol: Document 03/26/24 13:45 SW (Rec: 03/26/24 14:38 SW [id number]) Physical Therapy Assessment Goals Four Impairment Poor core stabilization. Impairment Pt is not able to maintain TA tight with breathing or movement of LE's. Short Term Goal (STG) Pt will be able to perform abdominal bracing with tightening and holding of TA with breathing. STG Duration 4 wks-03/22/24 Skilled Nursing Goal (LTG) Reduce bilateral hip pain with patient being able to stabilize core and maintain improved posturing of the low back (reduced lumbar lordosis) . LTG Duration 12 wks-05/17/24 Three Impairment Decreased L knee AROM is 3- 120 Impairment R knee AROM is 0-125 Car Rental Agent Goal (LTG) Improve L knee AROM (0-125 deg 's) with improved ability to get up/down off the floor with less pain. 02/27/24: L knee AROM after stretching (for first time) is 0-125 deg's. LTG Duration 6 wks-04/05/24 partially met goal 02/27/24 (need up/dn off floor w/<pain) Two Impairment L knee pain limiting floor transfer and stair ambulation. Car Rental Agent Goal (LTG) Decrease pain with stair ambulation. LTG Duration 12 wks-05/17/24 One Impairment Pt lacks appropriate self care HEP. Short Term Goal (STG) Pt will be educated in proper sitting/standing posture. 03/05/24- pt education on sit/ stand posture, HO given. STG Duration 2 wks-03/08/24 Skilled Nursing Goal (LTG) Pt will be independent in an effective self care HEP for core/hip/L knee strengthening and L knee mobility ex's. 02/27/24 03/05/24- Hip abd/add strength ex, HEP HO given 03/19/24- Hip Ext, pt denied HO LTG Duration 12 wks-05/17/24 Assessment Summary Assessment Pt in discomfort today d/t recent fall. Tx focused on manual therapy this session, focus on STM and AAROM for Knee flexion/ext to pt tolerance. Continued focus on Core stabilization, pt able to hold 10 TA contraction while maintaining breath work inititally, improved hold with continued focus, tactile and verbal feedback. Pt continues to be challenged with TA activation in Sidelying, though pt reports finally getting the feel for what it should feel like with carryover into other exercises . Physical Therapy Plan Frequency and Duration Frequency of Treatment 1x/Week Duration of treatment (weeks) 12 Plan of Care Start Date 02/23/24 Plan of Care End Date 05/17/24 Therapeutic Interventions Therapeutic Interventions Home Exercise Program,Joint Mobilizations,Manual Therapy, Neuromuscular Re-education, Self-Care/Home Management,Soft Tissue Mobilization, Therapeutic Activities, Therapeutic Exercises Modalities Cold Pack/Ice Massage,Electric Stimulation,Hot Packs, Ultrasound Next Visit Focus/Plan Next Note Type Treatment Note Next Visit Plan 8-10 visits total for L knee rehab to improve L knee AROM and core/hip/knee stabilization. Next: Assess to start L knee AROM, then check ability to get up/dn from floor. Educate in proper sitting/standing posture (STG 1). Exer: Strengthening: TA/core , L hip AB/AD/ext (Issued HEP 03/05/24, 03/19/24), L knee ( avoid rot due to pain until stab achieved). Function: Stairs and floor transfers when stabilization achieved at L knee and core. Modality: Ultrasound posterior L knee with extension stretch if needed. POC: L knee rehab (ROM L knee ext/flex) with core stabilized. Lumbar flexion/ rot & Manual lumbar traction to end if manfred hip pain.
--- NOTE | 2024-04-02 19:35 | PT.OTN ---
Current Diagnoses Bilateral primary osteoarthritis of knee (04/02/24) Pain in left hip (04/02/24) Pain in left knee (04/02/24) Radiculopathy, lumbar region (04/02/24) Muscle weakness (generalized) (04/02/24) Physical Therapy Treatment Note PT-OP-A Visit Information Start: 02/20/24 18:22 Freq: Status: Active Protocol: Document 04/02/24 13:00 LRN (Rec: 04/02/24 13:50 LRN [id number]) Out-Patient Physical Therapy Visit Information Visit Information Visit Type Treatment Note Visit Start Time 13:00 Visit Stop Time 13:47 Visit Number 05/29 Evaluation Information Evaluation Date 02/23/24 Precautions Precautions Arthritis, anxiety/depression controlled by med. R ankle surgery 2002 for fx, manfred feet surgery to remove nerves from top of both feet 15 yrs ago. PT-OP-B Current Condition Start: 02/20/24 18:22 Freq: Status: Active Protocol: Document 02/23/24 13:02 LRN (Rec: 02/23/24 14:24 LRN [id number]) Current Condition History of Current Condition Onset Date 2 yrs ago Current Complaints L knee pain with stairs and transfer from the floor History of Current Condition Pt reports osteoarthritis of L knee by blueberry grower who she saw for her R wrist. States she goes to the pool for exercise. Her L knee pain has worsened over the last 2 yrs notable with going up/down stairs. She has had L knee pain for 20 yrs. She thought it was a ligament problem, but it is osteoarthritis and bone spurs. States she has R knee pain with ER of the hip in the pool She doesn't want to give up on pool exercise. Prior Treatments and Tests None. Does pool exercises 3x/ week and [employer] fitness 2x/ wk. Treatment Goals Patient/Caregiver Goals Pt referred to PT; therefore she has no specific goal except to reduce pain with transfers from the floor and with stair ambulation (ascend and descend), and strengthen the core. Pt agreeable to HEP . Personal Factors Other Personal Factors That May Effect Arthritis, anxiety/depression Therapy/Recovery currently controlled by medications. PT-OP-C Subjective Start: 02/20/24 18:22 Freq: Status: Active Protocol: Document 04/02/24 13:00 LRN (Rec: 04/02/24 13:50 LRN [id number]) OP-PT Subjective Patient Comments Patient Comments Went to [facility] and had a hard time due to the hills. Got back 2 days ago and had to sit in car longer thatn the flight. Went to pool today and L knee hurts more today. Has noticed she doesn't stand straight, but always has a bend in the knee. PT-OP-G Mobility & Gait Start: 02/20/24 18:22 Freq: Status: Active Protocol: Document 02/23/24 13:02 LRN (Rec: 02/23/24 14:24 LRN [id number]) OP Gait Assessment Gait Gait Assistance Required: Independent Assistive Devices Assistive Device None Gait Deviations General Gait Pattern Lateral Trunk Lean,Wide Based Gait Comments Gait Comments Increased sway, WBing more on RLE. Stair Climbing Evaluation Evaluation Level of Assist On Stairs Independent Devices Stair Climbing Assistive Devices Right Railing Technique/Endurance Stair Climbing Direction Ascend and Descend Stair Climbing Technique Step to Step PT-OP-H Neuro Start: 02/20/24 18:22 Freq: Status: Active Protocol: Document 02/23/24 13:02 LRN (Rec: 02/23/24 14:24 LRN [id number]) Sensation Evaluation Gross Sensation Gross Sensation WNL PT-OP-J Posture/Palpation/Skin Start: 02/20/24 18:22 Freq: Status: Active Protocol: Document 02/23/24 13:02 LRN (Rec: 02/23/24 14:24 LRN [id number]) Posture Evaluation Position Standing Head/C-Spine Posture Forward Head T-Spine Posture Increased Kyphosis L-Spine Posture Increased Lordosis Hip Posture (L) Flexed,(R) Flexed Ankle/Foot Posture (L) Calcaneal Inversion,(R) Calcaneal Inversion Foot Arch (L) High Arch,(R) High Arch Comments Posture Comments Low L shoulder, wide stance. Palpation Assessment Location L knee Palpation Location Tibial plateau Palpation Findings Tenderness PT-OP-K Range of Motion Start: 02/20/24 18:22 Freq: Status: Active Protocol: Document 04/02/24 13:00 LRN (Rec: 04/02/24 13:50 LRN [id number]) Knee Goniometric Range of Motion Knee Right Patient Position Supine Flexion Active (degrees) 125 Left Patient Position Supine Flexion Active (degrees) 130 Extension Active (degrees) 0 PT-OP-L Special Tests Start: 02/20/24 18:22 Freq: Status: Active Protocol: Document 02/23/24 13:02 LRN (Rec: 02/23/24 14:27 LRN [id number]) Special Tests Lumbar Spine Special Tests Manual Traction Test Results Positive Comments Eliminiation of manfred hip and reduction in L knee pain PT-OP-M Strength Start: 02/20/24 18:22 Freq: Status: Active Protocol: Document 02/23/24 13:02 LRN (Rec: 02/23/24 14:24 LRN [id number]) Hip Strength Hip Manual Muscle Testing Right Comments Strength is 5/5. Left Extension (S1) 3 Fair Abduction 3 Fair Comments Strength is 5/5 except as indicated above. Knee Strength Knee Manual Muscle Testing Right Comments Strength is 5/5. Left Comments Strength is 5/5. Click felt with testing of extension, but not pain noted. Ankle/Foot Strength Ankle and Foot Manual Muscle Testing Right Comments Strength is 5/5 Left Comments Strength is 5/5 PT-OP-Q Treatments Start: 02/20/24 18:22 Freq: Status: Active Protocol: Document 04/02/24 13:00 LRN (Rec: 04/02/24 13:50 LRN [id number]) Therapeutic Exercises Supine Exercises Iliopsoas stretch Supine Exercise Name Jovan Test position Side bilateral Reps/Minutes 2' BKFO Supine Exercise Name Bent Knee Fallout w/ TrA and breathing focus Side bilateral Reps/Minutes x15 ea Comments Pt able to monitor w/o self phys feedback, but mvmt is rachetted AA L knee flex Supine Exercise Name AAROM with strap. AROM ROM taken (130 deg's) Side left Reps/Minutes 10 SH x 10 Comments cues for positioning not into pain, and execution of ex SLR Side bilateral Reps/Minutes 10x 3 Comments cues for eccentric control, core stabilization Prone Exercises Hip Ext Side bilateral Reps/Minutes 10x 3 Comments cues for form and eccentric control, pt reports fatigue, denies pain Sidelying Exercises Hip Add Sidelying Exercise Name Hip Add - HEP review Side left Resistance AROM Reps/Minutes 2x10 Comments cues for TrA, no breathholding , movement w/ breath Hip abd Sidelying Exercise Name Hip Abd (standing today) Side bilateral Resistance AROM Reps/Minutes 2x10 Comments Cues for eccentric control, form, Standing Exercises Knee flex Standing Exercise Name Strengthening Side bilateral Reps/Minutes 4 SH x 15 Hip AD/AB Standing Exercise Name LLE cautioned to slow mvmt and control swing Side bilateral Equipment Used // bars Reps/Minutes 10x 3 each Knee Flex stretch Standing Exercise Name knee flexion stretch Side bilateral Equipment Used // bars Reps/Minutes 2' Self-Care/Home Management Treatment Education Patient Education Home Exercise Program Activities Self-Care/Home Management Activities Issued & reviewed handout for proper sit/stand posture & I/S pt in supine Ilipsoas stretch . PT-OP-R Modalities Start: 02/20/24 18:22 Freq: Status: Active Protocol: Document 03/26/24 13:45 SW (Rec: 03/26/24 16:37 SW [id number]) Hot Pack/Cold Pack Treatment Cold Pack Location L knee Patient Position Supine Patient Tolerance Good Comments bolster under LEs, velasquez within reach PT-OP-T Assessment and Plan Start: 02/20/24 18:22 Freq: Status: Active Protocol: Document 04/02/24 13:00 LRN (Rec: 04/02/24 13:50 LRN [id number]) Physical Therapy Assessment Goals Four Impairment Poor core stabilization. Impairment Pt is not able to maintain TA tight with breathing or movement of LE's. Short Term Goal (STG) Pt will be able to perform abdominal bracing with tightening and holding of TA with breathing. 04/02/23: STG Duration 4 wks-03/22/24 [facility] Goal (LTG) Reduce bilateral hip pain with patient being able to stabilize core and maintain improved posturing of the low back (reduced lumbar lordosis) . LTG Duration 12 wks-05/17/24 Three Impairment Decreased L knee AROM is 3- 120 Impairment R knee AROM is 0-125 Physician Underwriter Goal (LTG) Improve L knee AROM (0-125 deg 's) with improved ability to get up/down off the floor with less pain. 02/27/24: L knee AROM after stretching (for first time) is 0-125 deg's. 04/02/24: L knee AROM after stretching is 0-128 deg's, PROM 0-130 deg's. Pt able to squat without pain. LTG Duration 6 wks-04/05/24 (04/02/24: MET GOAL) Two Impairment L knee pain limiting floor transfer and stair ambulation. [facility] Goal (LTG) Decrease pain with stair ambulation. LTG Duration 12 wks-05/17/24 One Impairment Pt lacks appropriate self care HEP. Short Term Goal (STG) Pt will be educated in proper sitting/standing posture. 03/05/24- pt education on sit/ stand posture, HO given. 04/02/24-reissued proper sit/ stand posture HO. STG Duration 2 wks-03/08/24 (03/05/24: GOAL MET) [facility] Goal (LTG) Pt will be independent in an effective self care HEP for core/hip/L knee strengthening and L knee mobility ex's. 02/27/24 03/05/24- Hip abd/add strength ex, HEP HO given 03/19/24- Hip Ext, pt denied HO 04/02/24: I/S pt in Iliopsoas stretch & proper sit/stand posture. LTG Duration 12 wks-05/17/24 Assessment Summary Assessment Pt is a 68 yo female with L knee instability/decreased mobility, and L knee and bilateral hip pain that appears to be lumbar in nature . Today pt improved with L knee flexion after stretch and ex to 130 deg's flexion (was 128 deg's last measured, norm R knee 125 deg's). She is able to get up and down off the floor without pain as long as she doesn't get on her knee. Extension is normal although L knee extension appears to have slight hyperextension. Physical Therapy Plan Frequency and Duration Frequency of Treatment 1x/Week Duration of treatment (weeks) 12 Plan of Care Start Date 02/23/24 Plan of Care End Date 05/17/24 Next Visit Focus/Plan Next Note Type Treatment Note Next Visit Plan 8-10 visits total for L knee rehab to improve L knee AROM and core/hip/knee stabilization. Next: Discuss Proper Posture: Stuart to safe mvmt, and issue HEP of Iliopsoas stretch sup & stand. Exer: Strengthening: TA/core , L hip AB/AD/ext (Issued HEP 03/05/24, 03/19/24), L knee ( avoid rot due to pain until stab achieved). Function: Stairs and floor transfers when stabilization achieved at L knee and core. Modality: Ultrasound posterior L knee with extension stretch if needed. POC: L knee rehab (ROM L knee ext/flex) with core stabilized. Lumbar flexion/ rot & Manual lumbar traction to end if manfred hip pain.
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
--- NOTE | 2024-04-18 15:57 | PT.OTN ---
Current Diagnoses Bilateral primary osteoarthritis of knee (04/18/24) Pain in left hip (04/18/24) Pain in left knee (04/18/24) Radiculopathy, lumbar region (04/18/24) Muscle weakness (generalized) (04/18/24) Physical Therapy Treatment Note PT-OP-A Visit Information Start: 02/20/24 18:22 Freq: Status: Active Protocol: Document 04/18/24 13:00 LRN (Rec: 04/18/24 13:50 LRN [id number]) Out-Patient Physical Therapy Visit Information Visit Information Visit Type Treatment Note Visit Start Time 13:00 Visit Stop Time 13:48 Visit Number 07/30 Evaluation Information Evaluation Date 02/23/24 Precautions Precautions Arthritis, anxiety/depression controlled by med. R ankle surgery 2002 for fx, manfred feet surgery to remove nerves from top of both feet 15 yrs ago. PT-OP-B Current Condition Start: 02/20/24 18:22 Freq: Status: Active Protocol: Document 02/23/24 13:02 LRN (Rec: 02/23/24 14:24 LRN [id number]) Current Condition History of Current Condition Onset Date 2 yrs ago Current Complaints L knee pain with stairs and transfer from the floor History of Current Condition Pt reports osteoarthritis of L knee by batch dumper who she saw for her R wrist. States she goes to the pool for exercise. Her L knee pain has worsened over the last 2 yrs notable with going up/down stairs. She has had L knee pain for 20 yrs. She thought it was a ligament problem, but it is osteoarthritis and bone spurs. States she has R knee pain with ER of the hip in the pool She doesn't want to give up on pool exercise. Prior Treatments and Tests None. Does pool exercises 3x/ week and [employer] 2x/ wk. Treatment Goals Patient/Caregiver Goals Pt referred to PT; therefore she has no specific goal except to reduce pain with transfers from the floor and with stair ambulation (ascend and descend), and strengthen the core. Pt agreeable to HEP . Personal Factors Other Personal Factors That May Effect Arthritis, anxiety/depression Therapy/Recovery currently controlled by medications. PT-OP-C Subjective Start: 02/20/24 18:22 Freq: Status: Active Protocol: Document 04/18/24 13:00 LRN (Rec: 04/18/24 13:50 LRN [id number]) OP-PT Subjective Patient Comments Patient Comments Back to what she was before her fall. Her L thigh is tight today, waking with it tight. Pain is descending stairs with use of railing. States she can get up in garden using buckets to push from. States she no longer has anterior hip pain and if walks slowly can descend stairs w/o pain. No pain ascending stairs. Patient Questionnaires Lower Extremity Functional Scale LEFS Score 63 LEFS Impairment 1 to 19% Impaired (Score 63-79 ) PT-OP-G Mobility & Gait Start: 02/20/24 18:22 Freq: Status: Active Protocol: Document 02/23/24 13:02 LRN (Rec: 02/23/24 14:24 LRN [id number]) OP Gait Assessment Gait Gait Assistance Required: Independent Assistive Devices Assistive Device None Gait Deviations General Gait Pattern Lateral Trunk Lean,Wide Based Gait Comments Gait Comments Increased sway, WBing more on RLE. Stair Climbing Evaluation Evaluation Level of Assist On Stairs Independent Devices Stair Climbing Assistive Devices Right Railing Technique/Endurance Stair Climbing Direction Ascend and Descend Stair Climbing Technique Step to Step PT-OP-H Neuro Start: 02/20/24 18:22 Freq: Status: Active Protocol: Document 02/23/24 13:02 LRN (Rec: 02/23/24 14:24 LRN [id number]) Sensation Evaluation Gross Sensation Gross Sensation WNL PT-OP-J Posture/Palpation/Skin Start: 02/20/24 18:22 Freq: Status: Active Protocol: Document 02/23/24 13:02 LRN (Rec: 02/23/24 14:24 LRN [id number]) Posture Evaluation Position Standing Head/C-Spine Posture Forward Head T-Spine Posture Increased Kyphosis L-Spine Posture Increased Lordosis Hip Posture (L) Flexed,(R) Flexed Ankle/Foot Posture (L) Calcaneal Inversion,(R) Calcaneal Inversion Foot Arch (L) High Arch,(R) High Arch Comments Posture Comments Low L shoulder, wide stance. Palpation Assessment Location L knee Palpation Location Tibial plateau Palpation Findings Tenderness PT-OP-K Range of Motion Start: 02/20/24 18:22 Freq: Status: Active Protocol: Document 04/02/24 13:00 LRN (Rec: 04/02/24 13:50 LRN [id number]) Knee Goniometric Range of Motion Knee Right Patient Position Supine Flexion Active (degrees) 125 Left Patient Position Supine Flexion Active (degrees) 130 Extension Active (degrees) 0 PT-OP-L Special Tests Start: 02/20/24 18:22 Freq: Status: Active Protocol: Document 02/23/24 13:02 LRN (Rec: 02/23/24 14:27 LRN [id number]) Special Tests Lumbar Spine Special Tests Manual Traction Test Results Positive Comments Eliminiation of manfred hip and reduction in L knee pain PT-OP-M Strength Start: 02/20/24 18:22 Freq: Status: Active Protocol: Document 02/23/24 13:02 LRN (Rec: 02/23/24 14:24 LRN [id number]) Hip Strength Hip Manual Muscle Testing Right Comments Strength is 5/5. Left Extension (S1) 3 Fair Abduction 3 Fair Comments Strength is 5/5 except as indicated above. Knee Strength Knee Manual Muscle Testing Right Comments Strength is 5/5. Left Comments Strength is 5/5. Click felt with testing of extension, but not pain noted. Ankle/Foot Strength Ankle and Foot Manual Muscle Testing Right Comments Strength is 5/5 Left Comments Strength is 5/5 PT-OP-Q Treatments Start: 02/20/24 18:22 Freq: Status: Active Protocol: Document 04/18/24 13:00 LRN (Rec: 04/18/24 13:50 LRN [id number]) Therapeutic Exercises Supine Exercises LTR Supine Exercise Name LTR, lumbar rotation Side bilateral Reps/Minutes x3' Comments gentl pain free range Iliopsoas stretch Supine Exercise Name Jovan Test position Side bilateral Reps/Minutes 2' Comments cues to hold opp LE to chest for maintaining PPT and increased flex stretch BKFO Supine Exercise Name Bent Knee Fallout w/ TrA and breathing focus- Reviewed Side bilateral Equipment Used L2 TB Reps/Minutes x15 ea Comments palpating TrA, ratchety movement SLR Supine Exercise Name TA tighten to start Side bilateral Reps/Minutes 10x 3 Comments cues for eccentric control, core stabilization TA tightening Supine Exercise Name Reviewed during stretches Knee flexion stretch Supine Exercise Name PROM stretch of knees Side left Reps/Minutes 1' Prone Exercises Hip Ext Prone Exercise Name Hip Ext Side bilateral Reps/Minutes 10x 3 Comments cues for form and eccentric control, pt reports fatigue, denies pain Sidelying Exercises Hip Add Sidelying Exercise Name Hip Add - HEP review Side left Resistance AROM Reps/Minutes 3x10 Comments cues for TrA, no breathholding , movement w/ breath Hip abd Sidelying Exercise Name Hip Abd (standing today) Side bilateral Resistance AROM Reps/Minutes 3x10 Comments cues for TrA, no breathholding , movement w/ breath Other Exercises STS Other Exercise Name chair squats- Trialed with Add squeeze Equipment Used mesh chair Reps/Minutes x5 Comments cues for squat mechanics, hip hinge, eccentric control Self-Care/Home Management Treatment Activities Self-Care/Home Management Activities Issued L2 TBand for her HEP. Pt educated and issued/ reviewed Proper Posture: The Stuart to Safe Movement with discussion of diffierent positions and effects on the low back. PT-OP-R Modalities Start: 02/20/24 18:22 Freq: Status: Active Protocol: Document 03/26/24 13:45 SW (Rec: 03/26/24 16:37 SW [id number]) Hot Pack/Cold Pack Treatment Cold Pack Location L knee Patient Position Supine Patient Tolerance Good Comments bolster under LEs, velasquez within reach PT-OP-T Assessment and Plan Start: 02/20/24 18:22 Freq: Status: Active Protocol: Document 04/18/24 13:00 LRN (Rec: 04/18/24 13:50 LRN [id number]) Physical Therapy Assessment Goals Four Impairment Poor core stabilization. Impairment Pt is not able to maintain TA tight with breathing or movement of LE's. Short Term Goal (STG) Pt will be able to perform abdominal bracing with tightening and holding of TA with breathing. 04/02/23: Pt able to demonstrated abdominal bracing during exercise. STG Duration 4 wks-03/22/24 (04/18/24: MET GOAL) M[employer] Blasting Goal (LTG) Reduce bilateral hip pain with patient being able to stabilize core and maintain improved posturing of the low back (reduced lumbar lordosis) . 04/18/24: No bilateral hip pain. LTG Duration 12 wks-05/17/24 (04/18/24: MET GOAL) Three Impairment Decreased L knee AROM is 3- 120 Impairment R knee AROM is 0-125 M[employer] Bl[employer] Goal (LTG) Improve L knee AROM (0-125 deg 's) with improved ability to get up/down off the floor with less pain. 02/27/24: L knee AROM after stretching (for first time) is 0-125 deg's. 04/02/24: L knee AROM after stretching is 0-128 deg's, PROM 0-130 deg's. Pt able to squat without pain. LTG Duration 6 wks-04/05/24 (04/02/24: MET GOAL) Two Impairment L knee pain limiting floor transfer and stair ambulation. Mcc Goal (LTG) Decrease pain with stair ambulation. 04/18/24: Pain descending stairs and reqs use of railing . No pain descending if goes slolwy. No pain ascending stairs, uses railing due to poor balance. Getting up from floor, has quick sharp pain getting up. LTG Duration 12 wks-05/17/24 (04/18/24: MET GOAL) One Impairment Pt lacks appropriate self care HEP. Short Term Goal (STG) Pt will be educated in proper sitting/standing posture. 03/05/24- pt education on sit/ stand posture, HO given. 04/02/24-reissued proper sit/ stand posture HO. STG Duration 2 wks-03/08/24 (03/05/24: GOAL MET) Mcc Goal (LTG) Pt will be independent in an effective self care HEP for core/hip/L knee strengthening and L knee mobility ex's. 02/27/24 03/05/24- Hip abd/add strength ex, HEP HO given 03/19/24- Hip Ext, pt denied HO 04/02/24: I/S pt in Iliopsoas stretch & proper sit/stand posture. 04/09/24- LTR LE on [place] ball, Seated flexion stretch with [place] ball. 04/18/24: HO for Proper Posture: The Stuart to Safe Movement. LTG Duration 12 wks-05/17/24 (04/18/24: MET GOAL) Assessment Summary Assessment Pt is a 68 yo female who was being seen for L knee instability/decreased mobility , and L knee and bilateral hip pain that appeared to be lumbar in nature. Today she demonstrates normal L knee AROM although tightness is felt in quads. She has improved in function per LEFS and reports no pain with stair ambulation if done slowly. She is able to get up off the floor with assist of arms or when moving slowly, without pain. The pt feels ready to be discharged to her HEP. No further therapy is planned. Physical Therapy Plan Discharge Physical Therapy Discharge Reasons Goals Met Discharge Comments Pt is at baseline of arthritic knee pain. Thank you for your referral.
== END 2024-04-22 13:52 | disposition home or self-care (01) ==
LOC: PHYS 13:00
PROVIDERS: Family Provider Family Medicine; PCP Family Medicine; Referring Provider Family Medicine; Visit Provider Family Medicine
DX: M25.562 Pain in left knee (principal); M17.0 Bilateral primary osteoarthritis of knee; M25.552 Pain in left hip; M54.16 Radiculopathy, lumbar region; M62.81 Muscle weakness (generalized)
CPT/HCPCS: 97110; 97112; 97140; 97162; 97535

== ENCOUNTER → 2024-04-18 14:41 | Outpatient (CLI) | payer MEDICARE, SELFPAY ==
--- NOTE | 2024-04-18 14:43 | DI.MG.S_ITS ---
BILATERAL DIGITAL SCREENING MAMMOGRAM 3D/2D WITH CAD WITH AUGMENTATION: 04/18/2024 CLINICAL: Routine screening. Family history of breast cancer. Comparison is made to exams dated: 04/10/2023 mammogram, 04/08/2022 mammogram, 03/10/2021 mammogram, and 05/09/2020 mammogram - [facility]. Both breasts are heterogeneously dense, which may obscure small masses (category c / 51-75% glandular tissue). Current study was also evaluated with a Computer Aided Detection (CAD) system. Bilateral breast implants are stable. There is a biopsy clip in the right breast. No significant masses, calcifications, or other findings are seen in either breast. There has been no significant interval change. IMPRESSION: NEGATIVE There is no mammographic evidence of malignancy. A 1 year screening mammogram is recommended. Based on Tyrer-Cuzick model (a risk assessment model), the patient's lifetime risk is 20.2% and her 10 year risk is 14.2%. If a patient has an elevated risk, a more comprehensive evaluation should be considered and/or a referral to a genetic counselor. The [place], [employer], and NCCN Guidelines advise the consideration of Breast MRI as an adjunct to screening mammography in patients whose Lifetime risk to develop breast cancer is 20% or higher. This exam was interpreted at Station ID: [id number]. NOTE: For mammograms, a report in lay terms will be sent to the patient. Approximately 15% of breast malignancies will not be visualized mammographically. In the management of a palpable breast mass, a negative mammogram must not discourage biopsy of a clinically suspicious lesion. Electronically Signed By: Cyril duong/ivania:04/19/2024 11:11:52 letter sent: Normal Exam ACR BI-RADS Category 1: Negative [id number]
== END ==
PROVIDERS: PCP Family Medicine; Referring Provider Family Medicine; Visit Provider Family Medicine
DX: Z12.31 Encounter for screening mammogram for malignant neoplasm of breast (principal); Z80.3 Family history of malignant neoplasm of breast; R92.333 Mammographic heterogeneous density, bilateral breasts
CPT/HCPCS: 77063; 77067

== ENCOUNTER → 2024-06-11 09:20 | Outpatient (CLI) | payer MEDICARE, SELFPAY ==
--- NOTE | 2024-06-11 09:22 | DI.RAD.S_ITS ---
PROCEDURE: XR CERVICAL SPINE 4V OR 5V INDICATIONS: Cervical neck pain, cervical radiculopathy TECHNIQUE: By views of the cervical spine were acquired. COMPARISON: None. FINDINGS: Bones: No fractures or dislocations to the T1 level. No suspicious bony lesions. There is severely reduced range of motion between flexion and extension, with preserved normal bony alignment. Spine degenerative disc disease and facet arthropathy. Soft tissues: Prevertebral soft tissues are normal in thickness. IMPRESSION: Multilevel degenerative disc disease. Multilevel facet arthropathy. Severely reduced range of motion in the flexed and extended positions. No fracture. No acute osseous lesion. If symptoms and/or clinical suspicion for pathology persists, evaluation with MRI should be considered for further assessment. Dictated by: Yue Kemp MD, PhD on 06/11/2024 at 9:59 Approved by: Yue Kemp MD, PhD on 06/11/2024 at 10:00
== END ==
LOC: RAD 09:22
PROVIDERS: PCP Family Medicine; Referring Provider Physician Assistant Surgical; Visit Provider Physician Assistant Surgical
DX: M47.22 Other spondylosis with radiculopathy, cervical region (principal); M50.10 Cervical disc disorder with radiculopathy, unspecified cervical region
CPT/HCPCS: 72050

== ENCOUNTER → 2024-08-29 07:35 | Outpatient (CLI) | payer MEDICARE, SELFPAY ==
[2024-08-29 08:40] LABS: Add Manual Diff / Slide Review NO; Basophils Absolute Auto 100 /uL (0-100); Basophils Percent Auto 0.9 % (0-2); Eosinophils Absolute Auto 200 /uL (0-450); Eosinophils Percent Auto 2.7 % (2-4); Hematocrit 35.4 % (36-46); Lymphocytes Absolute Auto 1700 /uL (1100-4500); Lymphocytes Percent Auto 27.8 % (25-40); Mean Corpuscular Hemoglobin 32.2 PG (26-34); Mean Corpuscular Volume 94.8 fL (80-100); Monocytes Absolute Auto 400 /uL (0-900); Monocytes Percent Auto 6.5 % (3-14); Neutrophils Absolute Auto 3900 /uL (1500-7000); Neutrophils Percent Auto 62.1 % (50-75); Platelet Count 356 X10^3/uL (150-400); Red Blood Cell Count 3.73 X10^6/uL (4.0-5.2); Red Cell Distribution Width 14.2 % (11.6-14.8); White Blood Cell Count 6.3 X10^3/uL (4.5-11.0)
[2024-08-29 08:55] LABS: BUN Creatinine Ratio 15.6 (6-22); Blood Urea Nitrogen 10 mg/dL (7-17); Calcium 9.4 mg/dL (8.4-10.2); Carbon Dioxide 25 mmol/L (22-32); Chloride 101 mmol/L (98-107); Cholesterol 205 mg/dL (140-199); Estimated Glomerular Filt Rate > 60 mL/min (>60); Glucose 137 mg/dL (80-110); HDL Cholesterol 98 mg/dL (40-60); HEMOLYSIS < 15 (0-50); LDL Cholesterol Calculated 71 mg/dL (<100); Potassium 4.4 mmol/L (3.4-5.1); Sodium 133 mmol/L (137-145); Triglycerides 178 mg/dL (35-150)
[2024-08-29 17:25] LABS: Creatinine Urine Random 173.82 mg/dL
[2024-08-29 17:29] LABS: Microalbumin Urine Random 2.1 mg/dL (0-1.6)
== END ==
PROVIDERS: PCP Family Medicine; Referring Provider Family Medicine; Visit Provider Family Medicine
DX: E11.9 Type 2 diabetes mellitus without complications (principal); E78.00 Pure hypercholesterolemia, unspecified; E78.1 Pure hyperglyceridemia
CPT/HCPCS: 36415; 80048; 80061; 82043; 82570; 83036; 85025

== ENCOUNTER → 2024-12-04 12:09 | Outpatient (CLI) | payer MEDICARE, SELFPAY ==
--- NOTE | 2024-12-04 12:10 | DI.RAD.S_ITS ---
PROCEDURE: XR RIBS RT 2V INDICATIONS: Right Side Pain TECHNIQUE: 2 views of the ribs were acquired. COMPARISON: None. FINDINGS: Surgical changes and devices: None. Bones and chest wall: No acute fractures or dislocations. No suspicious bony lesions. Overlying soft tissues appear unremarkable. Lungs and pleura: The visualized lung appears clear. No pleural effusions or pneumothorax are visible. IMPRESSION: No acute, displaced rib fracture. Dictated by: Can Hernandez M.D. on 12/04/2024 at 16:59 Approved by: Can Hernandez M.D. on 12/04/2024 at 17:00
== END ==
PROVIDERS: PCP Family Medicine; Referring Provider Family Medicine; Visit Provider Family Medicine
DX: R07.81 Pleurodynia (principal)
CPT/HCPCS: 71100

== ENCOUNTER → 2025-01-14 10:44 | Outpatient (CLI) | payer MEDICARE, SELFPAY ==
[2025-01-14 11:34] LABS: Influenza A - CEPHEID Flu A NEGATIVE (NEGATIVE); Influenza B - CEPHEID Flu B NEGATIVE (NEGATIVE); Respiratory Syncytial Virus Negative (Negative)
[2025-01-14 11:39] LABS: COVID-19 CEPHEID 4-PLEX PCR Negative (Negative)
== END ==
PROVIDERS: PCP Family Medicine; Visit Provider Physician Assistant
DX: R05.1 Acute cough (principal)
CPT/HCPCS: 0241U

== ENCOUNTER → 2025-01-14 11:00 | Outpatient (CLI) | payer MEDICARE, SELFPAY ==
--- NOTE | 2025-01-14 11:01 | DI.RAD.S_ITS ---
PROCEDURE: XR CHEST 2V INDICATIONS: deep cough w wheezing x 6 days TECHNIQUE: 2 views of the chest were acquired. COMPARISON: [facility], CR, XR CHEST 2V, 06/17/2022, 15:11. FINDINGS: Surgical changes and devices: None. Lungs and pleura: Lungs are clear. No pleural effusions or pneumothorax. Mediastinum: Mediastinal contours are normal. Heart size is normal. Bones and chest wall: No suspicious bony abnormalities. Soft tissues appear unremarkable. IMPRESSION: No acute cardiopulmonary abnormality is seen. Dictated by: Franck Simmons M.D. on 01/14/2025 at 13:13 Approved by: Franck Simmons M.D. on 01/14/2025 at 13:13
== END ==
PROVIDERS: PCP Family Medicine; Referring Provider Physician Assistant; Visit Provider Physician Assistant
DX: J06.9 Acute upper respiratory infection, unspecified (principal); R05.1 Acute cough
CPT/HCPCS: 0241U; 71046

== ENCOUNTER → 2025-04-16 08:28 | Outpatient (CLI) | payer MEDICARE, SELFPAY ==
[2025-04-16 09:39] LABS: Hematocrit 34.7 % (36-46); Hemoglobin 12.1 g/dL (12.0-16.0); Mean Corpuscular HGB Conc 34.8 % (30-36); Mean Corpuscular Volume 97.7 fL (80-100); Platelet Count 321 X10^3/uL (150-400); Red Blood Cell Count 3.55 X10^6/uL (4.0-5.2); Red Cell Distribution Width 15.5 % (11.6-14.8); White Blood Cell Count 7.2 X10^3/uL (4.5-11.0)
[2025-04-16 09:48] LABS: Hemoglobin A1C% w Est Avg Glu 5.9 % (4.0-6.0)
[2025-04-16 10:07] LABS: Alanine Aminotransferase 19 IU/L (<35); Albumin 3.8 g/dL (3.5-5.0); Albumin Globulin Ratio 1.3 (1.0-2.8); Alkaline Phosphatase 94 U/L (38-126); Aspartate Aminotransferase 26 IU/L (14-36); BUN Creatinine Ratio 15.4 (6-22); Bilirubin Total 0.4 mg/dL (0.2-1.3); Blood Urea Nitrogen 10 mg/dL (7-17); Calcium 9.2 mg/dL (8.4-10.2); Carbon Dioxide 28 mmol/L (22-32); Chloride 100 mmol/L (98-107); Cholesterol 168 mg/dL (140-199); Estimated Glomerular Filt Rate > 60 mL/min (>60); Globulin 2.9 g/dL (1.7-4.1); Glucose 131 mg/dL (70-99); HDL Cholesterol 104 mg/dL (40-60); HEMOLYSIS < 15 (0-50); LDL Cholesterol Calculated 32 mg/dL (<100); Potassium 3.9 mmol/L (3.4-5.1); Sodium 134 mmol/L (137-145); Total Protein 6.7 g/dL (6.3-8.2); Triglycerides 160 mg/dL (35-150)
[2025-04-16 10:24] LABS: Free T3, Triiodothyronine Free 3.11 pg/mL (2.77-5.27); Free T4, Direct Thyroxine 1.38 ng/dL (0.78-2.19)
[2025-04-16 10:37] LABS: Thyroid Stimulating Hormone 1.26 uIU/mL (0.47-4.68)
== END ==
PROVIDERS: PCP Family Medicine; Referring Provider Family Medicine; Visit Provider Family Medicine
DX: E11.9 Type 2 diabetes mellitus without complications (principal); E78.00 Pure hypercholesterolemia, unspecified; E78.1 Pure hyperglyceridemia; E03.9 Hypothyroidism, unspecified; Z13.9 Encounter for screening, unspecified; F10.90 Alcohol use, unspecified, uncomplicated
CPT/HCPCS: 36415; 80053; 80061; 83036; 84439; 84443; 84481; 85027

== ENCOUNTER 2025-05-01 15:52 | Emergency (ER) | payer MEDICARE, SELFPAY ==
[2025-05-01] VITALS (14 sets, daily range): BP systolic 197–217; BP diastolic 91–100; PULSE 75–89; RESP 12–21; TEMP 36.5; O2SAT 96–98; BMI 36.9
--- NOTE | 2025-05-01 16:09 | DI.CT.S_ITS ---
PROCEDURE: CT HEAD/BRAIN WO CON INDICATIONS: eye/vision changes TECHNIQUE: Noncontrast 4.5 mm thick angled axial sections acquired from the foramen magnum to the vertex, with coronal and sagittal reformats. For radiation dose reduction, the following was used: automated exposure control, adjustment of mA and/or kV according to patient size. COMPARISON: None. FINDINGS: Image quality: Diagnostic. CSF spaces: Basal cisterns are patent. No extra-axial fluid collections. The ventricles are symmetric in size and shape. Brain: No intracranial bleeds or mass effect. There is cerebral volume loss, with resultant ventricular and sulcal prominence. There are periventricular and deep white matter chronic small vessel ischemic changes. There is intracranial internal carotid artery atherosclerosis. Skull and face: Calvarium and visualized facial bones appear intact, without suspicious lesions. Sinuses: Visualized sinuses and mastoids are clear. IMPRESSION: No acute intracranial pathology. Dictated by: Charles Wills M.D. on 05/01/2025 at 16:44 Approved by: Charles Wills M.D. on 05/01/2025 at 16:45
--- NOTE | 2025-05-01 19:02 | DI.MRI.S_ITS ---
PROCEDURE: MR HEAD/BRAIN WO/W CON INDICATIONS: L retro orbital pain/ double vision TECHNIQUE: Noncontrast axial T1 spin echo, axial T2 fast spin echo, sagittal and axial FLAIR, coronal T2 fast spin echo, axial gradient echo, axial diffusion and ADC through the brain. After the administration of contrast, axial and coronal and sagittal T1 spin echo with fat saturation through the brain. COMPARISON: None. FINDINGS: Image quality: Excellent. CSF spaces: Basal cisterns are patent. No extra-axial fluid collections. Ventricles are normal in size and shape. Brain: No midline shift. No intracranial bleeds or masses. No abnormal intracranial enhancement. There is cerebral volume loss for age. There is periventricular white matter chronic small vessel ischemic change. The brainstem appears normal. Diffusion-weighted images demonstrate no acute infarct. No chronic ischemic insults. Normal intravascular flow voids are present. Skull and face: There is an ovoid, left retro-orbital mass measuring 0.9 x 0.5 by 1.2 cm abutting the superior rectus muscle. It is not causing significant mass effect on the extraocular muscles. It demonstrates T1 isointensity to cortex, T2 hyperintensity, and homogeneous enhancement. Calvarial marrow is normal in signal. Orbits appear normal. Sinuses: Sinuses and mastoids appear clear. IMPRESSION: No evidence acute intracranial process such is infarct or hemorrhage. Left retro-orbital mass in close association with the superior rectus muscle. This is nonspecific. Differential diagnosis includes both neuroma, schwannoma, less likely aneurysm. Dictated by: Elana Jones M.D. on 05/01/2025 at 21:04 Approved by: Elana Jones M.D. on 05/01/2025 at 21:19
[2025-05-01 21:22] LABS: Add Manual Diff / Slide Review NO; Basophils Absolute Auto 100 /uL (0-100); Basophils Percent Auto 0.7 % (0-2); Eosinophils Absolute Auto 100 /uL (0-450); Eosinophils Percent Auto 1.7 % (2-4); Hematocrit 36.7 % (36-46); Hemoglobin 12.5 g/dL (12.0-16.0); Lymphocytes Absolute Auto 1500 /uL (1100-4500); Lymphocytes Percent Auto 17.8 % (25-40); Mean Corpuscular Hemoglobin 33.4 PG (26-34); Mean Corpuscular Volume 98.2 fL (80-100); Monocytes Absolute Auto 600 /uL (0-900); Monocytes Percent Auto 7.2 % (3-14); Neutrophils Absolute Auto 6300 /uL (1500-7000); Neutrophils Percent Auto 72.6 % (50-75); Platelet Count 323 X10^3/uL (150-400); Red Blood Cell Count 3.74 X10^6/uL (4.0-5.2); Red Cell Distribution Width 15.3 % (11.6-14.8); White Blood Cell Count 8.7 X10^3/uL (4.5-11.0)
[2025-05-01 21:36] LABS: Alanine Aminotransferase 19 IU/L (<35); Albumin Globulin Ratio 1.1 (1.0-2.8); Alkaline Phosphatase 95 U/L (38-126); Aspartate Aminotransferase 30 IU/L (14-36); BUN Creatinine Ratio 19.2 (6-22); Bilirubin Total 0.4 mg/dL (0.2-1.3); Blood Urea Nitrogen 14 mg/dL (7-17); C-Reactive Protein Quant 1.7 mg/dL (<1.0); Calcium 9.1 mg/dL (8.4-10.2); Carbon Dioxide 29 mmol/L (22-32); Chloride 98 mmol/L (98-107); Estimated Glomerular Filt Rate > 60 mL/min (>60); Globulin 3.7 g/dL (1.7-4.1); Glucose 103 mg/dL (70-99); HEMOLYSIS < 15 (0-50); Sodium 133 mmol/L (137-145); Total Protein 7.7 g/dL (6.3-8.2)
[2025-05-01 21:42] LABS: Erythrocyte Sedimentation Rate 51 MM/HR (0-20)
--- NOTE | 2025-05-01 22:37 | ED_ITS ---
HPI - General Adult General Chief complaint: Eye Problems Stated complaint: needs xray on eyes sent by walkin Time Seen by Provider: 05/01/25 18:36 Source: patient Mode of arrival: Ambulatory History of Present Illness HPI narrative: 70-year-old woman with a history of rheumatoid arthritis, anxiety, depression, hypothyroidism, hyperlipidemia, psoriasis no documented history of hypertension she has been complaining of right eye pain was seen by her database marketing manager today after developing some double vision. Sent to the ER for further evaluation is not currently having any double vision or acute visual changes, still has a headache Related Data Home Medications ?Medication ?Instructions ?Recorded ?Confirmed cetirizine 10 mg tablet (24Hour 5 mg PO DAILY PRN 08/0804/29/25 Allergy) risankizumab-rzaa 150 mg/mL mg SUBCUT 06/13/24 5 subcutaneous pen injector (Oksanayrizi) colchicine 0.6 mg tablet 0.6 mg PO BID 11/25/2404/29 Previous Rx's ?Medication ?Instructions ?Recorded epinephrine 0.3 mg/0.3 mL 0.3 mg (0.3 mL) IM ONCE #2 e a 10/31/19 injection, auto-injector citalopram 10 mg tablet 10 mg PO DAILY #90 tabs 06/21 05/13 citalopram 20 mg tablet 20 mg PO DAILY #90 tabs 06/21 05/13 levothyroxine 100 mcg tablet 100 mcg PO DAILY #90 tabs 11/28/24 (Synthroid) rosuvastatin 10 mg tablet 10 mg PO DAILY #90 tabs 08/14 albuterol sulfate 90 mcg/actuation 2 inh inhalation Q4 -6H PRN 01/14/25 breath activated powder inhaler wheezing #1 ea benzonatate 200 mg capsule 200 mg PO TID PRN cough #30 caps 01/14/25 guaifenesin 1,200 mg tablet, 1,200 mg PO Q12H #30 tabs 01/14/25 extended release 12 hr naltrexone 50 mg tablet 50 mg PO DAILY #30 tabs 07/14 buspirone 10 mg tablet 10 mg PO BID PRN for anxiety #120 03/19/25 tabs Allergies Allergy/AdvReac Type Severity Reaction Status Date / Time tetracycline Allergy Mild HAND EDEMA Verified 05/01/25 16:04 AND SKIN DISCOLORATION (ORANGE) venom-honey bee (bee venom AdvReac Unknown Verified 05/01/25 16:04 (honey bee)) Review of Systems Review of Systems Narrative: Pertinent positive and negative findings as per HPI Patient History Medical History (Updated 05/02/25 @ 00:28 by Colleen Henderson MD) Chronic cough Other age-related incipient cataract, left eye Colon polyps Hypothyroidism Ankle fracture, right (2002) Pulmonary nodules Family history of malignant neoplasm of breast in first degree relative (03/20/15) Psoriasis Surgical History History of colonoscopy (2010) History of carpal tunnel release History of eyelid surgery (2013) History of breast augmentation Status post arthroscopy Status post hysterectomy Family History Sister Thyroid cancer Son Lymphoma Sister Breast cancer Sister Breast cancer Social History Smoking Status: Never smoker Smoking Status: Never smoker alcohol intake frequency: 3 or more drinks per day Exam Initial Vital Signs Initial Vital Signs: Vital Signs Temperature 97.7 F 05/01/25 16:04 Pulse Rate 89 05/01/25 16:04 Respiratory Rate 16 05/01/25 16:04 Blood Pressure 212/97 H 05/01/25 16:04 Pulse Oximetry 96 05/01/25 16:04 Oxygen Delivery Method Room Air 05/01/25 16:04 General: Alert appropriate in no acute distress HEENT: Slight exophthalmos appreciated on the left eye. At this point extraocular eye movement is unrestricted and she complains of no visual changes Respiratory: Able to speak in full sentences, no obvious respiratory distress Skin: No obvious rashes, warm and dry Neurologic: Grossly intact no obvious asymmetries or abnormalities Psych: appropriate insight and affect, cooperative Extremities: Multiple areas of active synovitis consistent with her autoimmune arthritis Course Orders Ordered: ED Orders 05/01/25 16:09 CT head/brain wo con Stat 05/01/25 19:02 MR head/brain wo/w con Stat 05/01/25 21:14 CBC Auto Diff [Complete Blood Count AUTO DIFF] Stat CMP [Comprehensive Metabolic Panel] Stat CRP [C-Reactive Protein Quant] Stat Erythrocyte Sedimentation Rate Stat Vital Signs Vital signs: Vital Signs - 8 hr 05/01/25 16:04 05/01/25 21:06 05/01/25 21:07 Temperature 97.7 F Pulse Rate 89 82 Respiratory Rate 16 Blood Pressure 212/97 H 197/97 H Pulse Oximetry 96 98 Oxygen Delivery Method Room Air 05/01/25 21:30 05/01/25 21:31 05/01/25 21:31 Temperature Pulse Rate 76 77 Respiratory Rate 13 19 Blood Pressure 215/97 H 215/97 H Pulse Oximetry 97 97 Oxygen Delivery Method 05/01/25 22:00 05/01/25 22:01 05/01/25 22:05 Temperature Pulse Rate 77 76 Respiratory Rate 14 21 Blood Pressure 217/98 H Pulse Oximetry 97 97 Oxygen Delivery Method 05/01/25 22:05 05/01/25 22:36 Temperature Pulse Rate 79 Respiratory Rate 16 Blood Pressure 198/100 H Pulse Oximetry 97 Oxygen Delivery Method Medical Decision Making Lab Data 05/01/25 21:14 05/01/25 21:14 Labs: Lab Results 05/01/25 Range/Units 21:14 WBC 8.7 (4.5-11.0) X10^3/uL RBC 3.74 L (4.0-5.2) X10^6/uL Hgb 12.5 (12.0-16.0) g/dL Hct 36.7 (36-46) % MCV 98.2 (80-100) fL MCH 33.4 (26-34) PG MCHC 34.0 (30-36) % RDW 15.3 H (11.6-14.8) % Plt Count 323 (150-400) X10^3/uL Neut % (Auto) 72.6 (50-75) % Lymph % (Auto) 17.8 L (25-40) % Putnam % (Auto) 7.2 (3-14) % Eos % (Auto) 1.7 L (2-4) % Baso % (Auto) 0.7 (0-2) % Neut # (Auto) 6300 (2449-3235) /uL Lymph # (Auto) 1500 (6695-9450) /uL Putnam # (Auto) 600 (0-900) /uL Eos # (Auto) 100 (0-450) /uL Baso # (Auto) 100 (0-100) /uL ESR 51 H (0-20) MM/HR Sodium 133 L (137-145) mmol/L Potassium 4.0 (3.4-5.1) mmol/L Chloride 98 (98-107) mmol/L Carbon Dioxide 29 (22-32) mmol/L BUN 14 (7-17) mg/dL Creatinine 0.73 (0.52-1.04) mg/dL Estimated GFR > 60 (>60) mL/min BUN/Creatinine Ratio 19.2 (6-22) Glucose 103 H (70-99) mg/dL Calcium 9.1 (8.4-10.2) mg/dL Total Bilirubin 0.4 (0.2-1.3) mg/dL AST 30 (14-36) IU/L ALT 19 (<35) IU/L Alkaline Phosphatase 95 (38-126) U/L C-Reactive Protein 1.7 H (<1.0) mg/dL Total Protein 7.7 (6.3-8.2) g/dL Albumin 4.0 (3.5-5.0) g/dL Globulin 3.7 (1.7-4.1) g/dL Albumin/Globulin Ratio 1.1 (1.0-2.8) Imaging Data brain MR: Radiologist's Impression: PROCEDURE: MR HEAD/BRAIN WO/W CON INDICATIONS: L retro orbital pain/ double vision TECHNIQUE: Noncontrast axial T1 spin echo, axial T2 fast spin echo, sagittal and axial FLAIR, coronal T2 fast spin echo, axial gradient echo, axial diffusion and ADC through the brain. After the administration of contrast, axial and coronal and sagittal T1 spin echo with fat saturation through the brain. COMPARISON: None. FINDINGS: Image quality: Excellent. CSF spaces: Basal cisterns are patent. No extra-axial fluid collections. Ventricles are normal in size and shape. Brain: No midline shift. No intracranial bleeds or masses. No abnormal intracranial enhancement. There is cerebral volume loss for age. There is periventricular white matter chronic small vessel ischemic change. The brainstem appears normal. Diffusion-weighted images demonstrate no acute infarct. No chronic ischemic insults. Normal intravascular flow voids are present. Skull and face: There is an ovoid, left retro-orbital mass measuring 0.9 x 0.5 by 1.2 cm abutting the superior rectus muscle. It is not causing significant mass effect on the extraocular muscles. It demonstrates T1 isointensity to cortex, T2 hyperintensity, and homogeneous enhancement. Calvarial marrow is normal in signal. Orbits appear normal. Sinuses: Sinuses and mastoids appear clear. IMPRESSION: No evidence acute intracranial process such is infarct or hemorrhage. Left retro-orbital mass in close association with the superior rectus muscle. This is nonspecific. Differential diagnosis includes both neuroma, schwannoma, less likely aneurysm. Dictated by: Elana Jones M.D. on 05/01/2025 at 21:04 CT scan - head: Radiologist's Impression: PROCEDURE: CT HEAD/BRAIN WO CON INDICATIONS: eye/vision changes TECHNIQUE: Noncontrast 4.5 mm thick angled axial sections acquired from the foramen magnum to the vertex, with coronal and sagittal reformats. For radiation dose reduction, the following was used: automated exposure control, adjustment of mA and/or kV according to patient size. COMPARISON: None. FINDINGS: Image quality: Diagnostic. CSF spaces: Basal cisterns are patent. No extra-axial fluid collections. The ventricles are symmetric in size and shape. Brain: No intracranial bleeds or mass effect. There is cerebral volume loss, with resultant ventricular and sulcal prominence. There are periventricular and deep white matter chronic small vessel ischemic changes. There is intracranial internal carotid artery atherosclerosis. Skull and face: Calvarium and visualized facial bones appear intact, without suspicious lesions. Sinuses: Visualized sinuses and mastoids are clear. IMPRESSION: No acute intracranial pathology. Dictated by: Charles Wills M.D. on 05/01/2025 at 16:44 MDM Narrative Medical decision making narrative: CC: Double vision, referred by Ophthalmology Complicating co-morbidities: Autoimmune arthritis, hypothyroidism Data collected from: patient Differential considered: Stroke, orbital mass, infection Exam documented above, pertinent findings include: Patient's blood pressure was significantly elevated with remainder of her heart and lung exam quite benign. She states that while she is having headache that is not severe. Her left eye has some mild exophthalmos, no visual acuity changes appreciated. Lab Test results independently reviewed as above. Pertinent findings: CBC shows normal findings Chemistries are reassuring. C-reactive protein is slightly elevated at 1.7, again she does have autoimmune arthritis Imaging studies independently reviewed: MR brain: There is an ovoid, left retro-orbital mass measuring 0.9 x 0.5 by 1.2 cm abutting the superior rectus muscle. It is not causing significant mass effect on the extraocular muscles Consultations: Images sent to [facility], awaiting discussion with either Neurology or ophthalmology Discussed with Dr Curtis at the [facility]. He reviewed the MRI since. His suggestion was to follow up with her primary database marketing manager. May need a referral to an oculoplastic specialist. They are available at the [facility] but he also thought there may be some community center worker that would be closer and more convenient. He did not feel this needed urgent evaluation at [facility] this evening. Discussion: 70-year-old woman with a history autoimmune arthritis, hypothyroidism no personal history of hypertension been having increasing left- sided headaches localized behind the left eye. Had double vision this morning was seen by her outpatient database marketing manager, Dr. Emanuel who was concerned with some of the musculoskeletal changes with acute extraocular eye movement and referred her to the emergency department. MRI was done that does show a left retro-orbital mass measuring 0.9 x 0.5 x 1.2 cm. In discussion with ophthalmology at the [facility] recommendation was to follow up with her primary database marketing manager tomorrow. Patient will do that. Regarding her elevated blood pressure, in the absence of prior diagnosis of blood pressure I certainly do not want to start immediate medications to treat this. She did recently start some naturopathic medications to treat her fatty liver disease and will hold these for the next week and continue to check blood pressures. Encouraged her to follow up with her primary care doctor regarding her blood pressure readings. She understands reasons to return to the emergency department. At this point there was no indication for hospitalization or additional imaging she is safe for discharge Discharge Plan Departure Patient Disposition: Home Clinical Impression: Retro-orbital pain of left eye, Elevated blood pressure reading Orbital pain Qualifiers: Laterality: left Qualified Code(s): H57.12 - Ocular pain, left eye Activity Restrictions/Additional Instructions: Thank you for coming in today You do have a oval area of growth behind your eye on the left side measuring 0.9 x 0.5 x 1.2 cm. I reviewed the MRI with an database marketing manager at the [facility]. He did not feel that you needed emergency treatment or transfer to the [facility] at this time but did recommend you follow up with your primary database marketing manager tomorrow Please give Dr. Emanuel's office a call. She may want to review the MRI study and, after discussion with the database marketing manager at the [facility], may want to refer you to an oculoplastic specialist for further evaluation of this growth behind your eye to see what needs to happen next in your workup Regarding your elevated blood pressure readings, I agree that stopping the new nitro pathic medications to treat your liver is a good idea. Please do continue to keep track of your blood pressures and follow up with your primary care physician If you find that you are getting worse or develop any new symptoms, please feel free to return to the emergency department for further evaluation. Prescriptions: No Action Skyrizi 150 mg/mL pen injector SUBCUT Patient Comments: [NO ORIGINAL SIG] colchicine 0.6 mg tablet 0.6 mg PO BID benzonatate 200 mg capsule 200 mg PO TID PRN (Reason: cough) Qty: 30 0RF guaifenesin 1,200 mg tablet extended release 12hr 1,200 mg PO Q12H Qty: 30 0RF albuterol sulfate 90 mcg/actuation aerosol powdr breath activated 2 inh inhalation Q4-6H PRN (Reason: wheezing) Qty: 1 0RF epinephrine 0.3 mg/0.3 mL auto-injector 0.3 mg IM ONCE Qty: 2 1RF citalopram 20 mg tablet 20 mg PO DAILY Qty: 90 3RF citalopram 10 mg tablet 10 mg PO DAILY Qty: 90 3RF rosuvastatin 10 mg tablet 10 mg PO DAILY Qty: 90 3RF levothyroxine [Synthroid] 100 mcg tablet 100 mcg PO DAILY Qty: 90 2RF naltrexone 50 mg tablet 50 mg PO DAILY Qty: 30 3RF Rx Instructions: Take 1 tab daily buspirone 10 mg tablet 10 mg PO BID PRN (Reason: for anxiety) Qty: 120 0RF cetirizine [24Hour Allergy] 10 mg tablet 5 mg PO DAILY PRN Referrals: Jared Jin MD [Primary Care Provider, Family Practice] Stand Alone Forms: Patient Portal/API
[2025-05-02 00:12] VITALS: PULSE 79
[2025-05-02 00:13] VITALS: BP 220/92; PULSE 77; RESP 18; O2SAT 98
== END 2025-05-02 00:38 | disposition home or self-care (01) ==
PROVIDERS: Emergency Provider Emergency Medicine; PCP Family Medicine
DX: H57.12 Ocular pain, left eye (principal); R51.9 Headache, unspecified; R03.0 Elevated blood-pressure reading, without diagnosis of hypertension; H44.89 Other disorders of globe
CPT/HCPCS: 70450; 70553; 80053; 85025; 85651; 86140; 99281; 99284; A9579

== ENCOUNTER → 2025-05-05 15:57 | Outpatient (CLI) | payer MEDICARE, SELFPAY ==
--- NOTE | 2025-05-05 15:59 | DI.MG.S_ITS ---
MM screening mammo implant BI: 05/05/2025. BI-RADS: 2 CLINICAL: 70-year old female for bilateral screening mammogram. Tyrer-Cuzick lifetime risk of 14.5%. Current reported family history of breast cancer: sister and second sister. The patient has bilateral implants. PRIOR EXAMS 04/18/2024, 04/10/2023, 05/10/2022, 04/08/2022, 03/10/2021, 05/09/2020. MAMMOGRAPHY TECHNIQUE: 2D and 3D (tomosynthesis) digital mammographic views obtained, with additional images as needed for full coverage. Current study was also evaluated with a Computer Aided Detection (CAD) system. DENSITY C. The breasts are heterogeneously dense, which may obscure small masses. IMPLANTS Right: Breast implant present on the right. Left: Breast implant present on the left. MAMMOGRAPHY FINDINGS Right: Biopsy marker present on the right. There are no suspicious masses, calcifications, or other findings in the breast. Left: There are no suspicious masses, calcifications, or other findings in the breast. IMPRESSION: * No evidence of malignancy with benign findings. RECOMMENDATIONS Bilateral * Annual screening mammography. OVERALL ASSESSMENT CATEGORY BI-RADS-2: Benign. The [employer] recommends annual screening mammography beginning at age 40 for women with average risk of breast cancer. ELECTRONICALLY SIGNED: Cyril Hoskins M.D. on 05/06/2025 at 08:46:45 AM PT Interpreting Station ID: [id number]
== END ==
PROVIDERS: PCP Family Medicine; Referring Provider Family Medicine; Visit Provider Family Medicine
DX: Z12.31 Encounter for screening mammogram for malignant neoplasm of breast (principal); R92.333 Mammographic heterogeneous density, bilateral breasts; Z80.3 Family history of malignant neoplasm of breast; Z98.82 Breast implant status
CPT/HCPCS: 77063; 77067

== ENCOUNTER → 2025-05-07 08:43 | Outpatient (CLI) | payer MEDICARE, SELFPAY ==
[2025-05-07 09:40] LABS: Add Manual Diff / Slide Review NO; Basophils Absolute Auto 100 /uL (0-100); Basophils Percent Auto 1.4 % (0-2); Eosinophils Absolute Auto 200 /uL (0-450); Eosinophils Percent Auto 3.1 % (2-4); Hematocrit 35.9 % (36-46); Hemoglobin 12.3 g/dL (12.0-16.0); Lymphocytes Absolute Auto 1300 /uL (1100-4500); Mean Corpuscular HGB Conc 34.3 % (30-36); Mean Corpuscular Hemoglobin 33.7 PG (26-34); Mean Corpuscular Volume 98.3 fL (80-100); Monocytes Absolute Auto 400 /uL (0-900); Monocytes Percent Auto 7.2 % (3-14); Neutrophils Absolute Auto 3500 /uL (1500-7000); Neutrophils Percent Auto 64.3 % (50-75); Platelet Count 326 X10^3/uL (150-400); Red Blood Cell Count 3.65 X10^6/uL (4.0-5.2); Red Cell Distribution Width 14.9 % (11.6-14.8); White Blood Cell Count 5.5 X10^3/uL (4.5-11.0)
[2025-05-07 09:55] LABS: HEMOLYSIS 21 (0-50); Iron 67 ug/dL (37-170)
[2025-05-07 09:59] LABS: Erythrocyte Sedimentation Rate 69 MM/HR (0-20)
[2025-05-07 10:05] LABS: Percent Iron Saturation 22 % (15-50); Total Iron Binding Capacity 306 ug/dL (265-497); Transferrin 275 mg/dL (206-381)
[2025-05-07 10:07] LABS: C-Reactive Protein Quant 1.9 mg/dL (<1.0); Cholesterol 184 mg/dL (140-199); HDL Cholesterol 99 mg/dL (40-60); LDL Cholesterol Calculated 41 mg/dL (<100); Triglycerides 220 mg/dL (35-150)
[2025-05-07 10:26] LABS: Cortisol AM (Before 10AM) 14.9 ug/dL (4.46-22.7)
[2025-05-07 10:30] LABS: Ferritin 72 ng/mL (11-264)
[2025-05-07 10:45] LABS: Vitamin B12 Reflex MMA if <400 237 pg/mL (239-931)
[2025-05-07 10:51] LABS: Vitamin D 25 Hydroxy (D3) 40.7 ng/mL (30.0-100.0)
[2025-05-07 11:08] LABS: Estradiol, Total 53.4 pg/mL
[2025-05-08 11:30] LABS: Dehydroepiandrosterone Sulfate 25.3 ug/dL (20.4-186.6)
== END ==
PROVIDERS: PCP Family Medicine; Referring Provider Family Medicine; Visit Provider Family Medicine
DX: L65.9 Nonscarring hair loss, unspecified (principal); L40.9 Psoriasis, unspecified; L65.8 Other specified nonscarring hair loss; R53.83 Other fatigue; E11.9 Type 2 diabetes mellitus without complications
CPT/HCPCS: 36415; 80061; 82306; 82533; 82607; 82627; 82670; 82728; 83540; 83550; 83921; 84402; 84403; 85025; 85651; 86038; 86140

== ENCOUNTER 2025-05-14 06:26 | Emergency (ER) | payer MEDICARE, SELFPAY ==
[2025-05-14 06:29] VITALS: BP 205/119; PULSE 88; RESP 16; TEMP 36.7; O2SAT 95; BMI 36.9
--- NOTE | 2025-05-14 06:37 | ED.EXTPRO ---
HPI - Extremity Problem <Rad Moreno MD - Last Filed: 05/14/25 15:45> General Chief complaint: Extremity Problem,Nontraumatic Stated complaint: pain left arm arthritis Time Seen by Provider: 05/14/25 06:36 Source: patient Mode of arrival: Ambulatory History of Present Illness HPI Narrative: 70-year-old right-handed female with history of psoriatic arthritis, complains of increasing pain to [id number]-right wrist without history of trauma, believes she is having a flare of her psoriatic arthritis. Usually her symptoms or worse in the right wrist than left wrist. No elbow pain or shoulder pain. No ankle foot knee toe pain. She does not feel feverish. No new activities or known upper extermity trauma. Related Data Home Medications ?Medication ?Instructions ?Recorded ?Confirmed cetirizine 10 mg tablet (24Hour 5 mg PO DAILY PRN 11/28/18 04/29/25 Allergy) risankizumab-rzaa 150 mg/mL mg SUBCUT 06/13/24 04/29/25 subcutaneous pen injector (Jaret) colchicine 0.6 mg tablet 0.6 mg PO BID 11/25/24 04/29/25 Previous Rx's ?Medication ?Instructions ?Recorded epinephrine 0.3 mg/0.3 mL 0.3 mg (0.3 mL) IM ONCE #2 ea 10/31/19 injection, auto-injector citalopram 10 mg tablet 10 mg PO DAILY #90 tabs 07/15/24 citalopram 20 mg tablet 20 mg PO DAILY #90 tabs 07/15/24 levothyroxine 100 mcg tablet 100 mcg PO DAILY #90 tabs 11/28/24 (Synthroid) rosuvastatin 10 mg tablet 10 mg PO DAILY #90 tabs 11/28/24 albuterol sulfate 90 mcg/actuation 2 inh inhalation Q4-6H PRN 01/14/25 breath activated powder inhaler wheezing #1 ea benzonatate 200 mg capsule 200 mg PO TID PRN cough #30 caps 01/14/25 guaifenesin 1,200 mg tablet, 1,200 mg PO Q12H #30 tabs 01/14/25 extended release 12 hr naltrexone 50 mg tablet 50 mg PO DAILY #30 tabs 02/25/25 buspirone 10 mg tablet 10 mg PO BID PRN for anxiety #120 03/19/25 tabs methylprednisolone 4 mg tablets in See Rx Instructions PO .COMPLEX 05/14/25 a dose pack (Medrol (Albert)) #21 ea oxycodone-acetaminophen 5 mg-325 1 tab PO Q8H PRN pain 3 days #9 05/14/25 mg tablet (Percocet) tabs Allergies Allergy/AdvReac Type Severity Reaction Status Date / Time tetracycline Allergy Mild HAND EDEMA Verified 05/01/25 16:04 AND SKIN DISCOLORATION (ORANGE) venom-honey bee (bee venom AdvReac Unknown Verified 05/01/25 16:04 (honey bee)) Patient History <Rad Moreno MD - Last Filed: 05/14/25 15:45> Medical History (Updated 05/14/25 @ 08:39 by Gino Ann DO) Chronic cough Other age-related incipient cataract, left eye Colon polyps Hypothyroidism Ankle fracture, right (2002) Pulmonary nodules Family history of malignant neoplasm of breast in first degree relative (03/20/15) Psoriasis Surgical History History of colonoscopy (2010) History of carpal tunnel release History of eyelid surgery (2013) History of breast augmentation Status post arthroscopy Status post hysterectomy Family History Sister Thyroid cancer Son Lymphoma Sister Breast cancer Sister Breast cancer Social History Smoking Status: Never smoker Smoking Status: Never smoker alcohol intake frequency: 3 or more drinks per day Exam <Rad Moreno MD - Last Filed: 05/14/25 15:45> Narrative Exam Narrative: GENERAL: Well-developed patient, in mild distress. HEAD: Atraumatic. Normocephalic. EYES: Pupils equal round and reactive. Extraocular motions intact. No scleral icterus. No injection or drainage. ENT: Nose without bleeding, purulent drainage. Throat without erythema, tonsillar hypertrophy or exudate. Airway patent. NECK: Trachea midline. Non tender CARDIOVASCULAR: Regular rate and rhythm without murmurs, gallops, or rubs. RESPIRATORY: Clear to auscultation. Breath sounds equal bilaterally. No wheezes, rales, or rhonchi. GASTROINTESTINAL: Abdomen soft, non-tender, nondistended. EXTREMITIES: Tenderness with warmth to left wrist and dorsal hand and MCPs. Right wrist with mild tenderness without obvious gross effusion or warmth. BACK: Nontender without deformity or crepitance. No flank tenderness. NEURO: AOx3. Motor functions grossly nonfocal SKIN: No rash or erythema of visible areas Initial Vital Signs Initial Vital Signs: Vital Signs Temperature 98.1 F 05/14/25 06:29 Pulse Rate 88 05/14/25 06:29 Respiratory Rate 16 05/14/25 06:29 Blood Pressure 205/119 H 05/14/25 06:29 Pulse Oximetry 95 05/14/25 06:29 Oxygen Delivery Method Room Air 05/14/25 06:29 <Gino Ann DO - Last Filed: 05/14/25 08:40> Initial Vital Signs Initial Vital Signs: Vital Signs Temperature 98.1 F 05/14/25 06:29 Pulse Rate 88 05/14/25 06:29 Respiratory Rate 16 05/14/25 06:29 Blood Pressure 205/119 H 05/14/25 06:29 Pulse Oximetry 95 05/14/25 06:29 Oxygen Delivery Method Room Air 05/14/25 06:29 Course <Rad Moreno MD - Last Filed: 05/14/25 15:45> Orders Ordered: ED Orders 05/14/25 07:17 CBC Auto Diff [Complete Blood Count AUTO DIFF] Stat CMP [Comprehensive Metabolic Panel] Stat CRP [C-Reactive Protein Quant] Stat ESR [Erythrocyte Sedimentation Rate] Stat Lactate (Lactic Acid) Stat Procalcitonin Stat Discontinued Medications Hydromorphone HCl (Hydromorphone 0.5 Mg Inj) 0.5 mg IV NOW ONE Stop: 05/14/25 06:52 Last Admin: 05/14/25 07:18 Dose: 0.5 mg Documented By: PEREZ Methylprednisolone (Methylprednisolone 125 Mg/2 Ml Vial) 125 mg IV NOW ONE Stop: 05/14/25 06:52 Last Admin: 05/14/25 07:17 Dose: 125 mg Documented By: PEREZ Ondansetron HCl (Ondansetron 4 Mg/2 Ml Inj) 4 mg IV NOW ONE Stop: 05/14/25 06:52 Last Admin: 05/14/25 07:17 Dose: 4 mg Documented By: PEREZ Vital Signs Vital signs: Vital Signs - 8 hr 05/14/25 09:00 Pulse Rate 75 Respiratory Rate 16 Blood Pressure 190/88 H Pulse Oximetry 100 <Gino Ann DO - Last Filed: 05/14/25 08:40> Orders Ordered: ED Orders 05/14/25 07:17 CBC Auto Diff [Complete Blood Count AUTO DIFF] Stat CMP [Comprehensive Metabolic Panel] Stat CRP [C-Reactive Protein Quant] Stat ESR [Erythrocyte Sedimentation Rate] Stat Lactate (Lactic Acid) Stat Procalcitonin Stat Discontinued Medications Hydromorphone HCl (Hydromorphone 0.5 Mg Inj) 0.5 mg IV NOW ONE Stop: 05/14/25 06:52 Last Admin: 05/14/25 07:18 Dose: 0.5 mg Documented By: PEREZ Methylprednisolone (Methylprednisolone 125 Mg/2 Ml Vial) 125 mg IV NOW ONE Stop: 05/14/25 06:52 Last Admin: 05/14/25 07:17 Dose: 125 mg Documented By: PEREZ Ondansetron HCl (Ondansetron 4 Mg/2 Ml Inj) 4 mg IV NOW ONE Stop: 05/14/25 06:52 Last Admin: 05/14/25 07:17 Dose: 4 mg Documented By: PEREZ Vital Signs Vital signs: Vital Signs - 8 hr 05/14/25 09:00 Pulse Rate 75 Respiratory Rate 16 Blood Pressure 190/88 H Pulse Oximetry 100 MDM - Extremity (Nontraumatic) <Rad Moreno MD - Last Filed: 05/14/25 15:45> Lab Data 05/14/25 07:17 05/14/25 07:17 Labs: Lab Results 05/14/25 Range/Units 07:17 WBC 11.8 H (4.5-11.0) X10^3/uL RBC 3.58 L (4.0-5.2) X10^6/uL Hgb 12.0 (12.0-16.0) g/dL Hct 34.9 L (36-46) % MCV 97.5 (80-100) fL MCH 33.6 (26-34) PG MCHC 34.4 (30-36) % RDW 14.6 (11.6-14.8) % Plt Count 324 (150-400) X10^3/uL Neut % (Auto) 79.1 H (50-75) % Lymph % (Auto) 12.6 L (25-40) % [place] % (Auto) 5.7 (3-14) % Eos % (Auto) 2.0 (2-4) % Baso % (Auto) 0.6 (0-2) % Neut # (Auto) 9400 H (3522-9079) /uL Lymph # (Auto) 1500 (2277-9427) /uL [place] # (Auto) 700 (0-900) /uL Eos # (Auto) 200 (0-450) /uL Baso # (Auto) 100 (0-100) /uL ESR 50 H (0-20) MM/HR Sodium 134 L (137-145) mmol/L Potassium 4.1 (3.4-5.1) mmol/L Chloride 100 (98-107) mmol/L Carbon Dioxide 24 (22-32) mmol/L BUN 11 (7-17) mg/dL Creatinine 0.61 (0.52-1.04) mg/dL Estimated GFR > 60 (>60) mL/min BUN/Creatinine Ratio 18.0 (6-22) Glucose 148 H (70-99) mg/dL Lactate 1.6 (0.7-2.1) mmol/L Calcium 8.8 (8.4-10.2) mg/dL Total Bilirubin 0.4 (0.2-1.3) mg/dL AST 29 (14-36) IU/L ALT 17 (<35) IU/L Alkaline Phosphatase 88 (38-126) U/L C-Reactive Protein 2.4 H (<1.0) mg/dL Total Protein 7.3 (6.3-8.2) g/dL Albumin 3.9 (3.5-5.0) g/dL Globulin 3.4 (1.7-4.1) g/dL Albumin/Globulin Ratio 1.1 (1.0-2.8) Procalcitonin 0.057 (<0.5) ng/mL MDM Narrative Medical decision making narrative: 70-year-old female with history of psoriatic arthritis with left greater than right wrist flare symptoms, afebrile. Elevated blood pressure likely due to pain. IV Dilaudid/Zofran. IV Solu-Medrol. We will send labs for inflammatory markers. Reassess blood pressure after analgesic/steroid medications administered. 0700, labs pending, response to therapies above pending, inflammatory marker labs pending, signed out [facility] ED shift physician Dr Ann. 0715: Patient was signed out to me by Dr. Moreno, patient with a history of psoriatic arthritis to bilateral wrist, complaining of left wrist flare-up. Final disposition pending lab work Re eval, most likely discharge with steroids and pain medicine 0837: Patient was re-evaluated, significantly improved symptoms after administration medication here, patient no longer hypertensive, lab work did show only mild leukocytosis at 11.8, otherwise Chem panel unremarkable, patient states that she does have an appointment with a lastex thread winder in the next week and agrees with the being discharged home with outpatient follow up. <Gino Ann, DO - Last Filed: 05/14/25 08:40> Lab Data Labs: Lab Results 05/14/25 Range/Units 07:17 WBC 11.8 H (4.5-11.0) X10^3/uL RBC 3.58 L (4.0-5.2) X10^6/uL Hgb 12.0 (12.0-16.0) g/dL Hct 34.9 L (36-46) % MCV 97.5 (80-100) fL MCH 33.6 (26-34) PG MCHC 34.4 (30-36) % RDW 14.6 (11.6-14.8) % Plt Count 324 (150-400) X10^3/uL Neut % (Auto) 79.1 H (50-75) % Lymph % (Auto) 12.6 L (25-40) % [place] % (Auto) 5.7 (3-14) % Eos % (Auto) 2.0 (2-4) % Baso % (Auto) 0.6 (0-2) % Neut # (Auto) 9400 H (9088-5225) /uL Lymph # (Auto) 1500 (9751-3245) /uL [place] # (Auto) 700 (0-900) /uL Eos # (Auto) 200 (0-450) /uL Baso # (Auto) 100 (0-100) /uL ESR 50 H (0-20) MM/HR Sodium 134 L (137-145) mmol/L Potassium 4.1 (3.4-5.1) mmol/L Chloride 100 (98-107) mmol/L Carbon Dioxide 24 (22-32) mmol/L BUN 11 (7-17) mg/dL Creatinine 0.61 (0.52-1.04) mg/dL Estimated GFR > 60 (>60) mL/min BUN/Creatinine Ratio 18.0 (6-22) Glucose 148 H (70-99) mg/dL Lactate 1.6 (0.7-2.1) mmol/L Calcium 8.8 (8.4-10.2) mg/dL Total Bilirubin 0.4 (0.2-1.3) mg/dL AST 29 (14-36) IU/L ALT 17 (<35) IU/L Alkaline Phosphatase 88 (38-126) U/L C-Reactive Protein 2.4 H (<1.0) mg/dL Total Protein 7.3 (6.3-8.2) g/dL Albumin 3.9 (3.5-5.0) g/dL Globulin 3.4 (1.7-4.1) g/dL Albumin/Globulin Ratio 1.1 (1.0-2.8) Procalcitonin 0.057 (<0.5) ng/mL MDM Narrative Medical decision making narrative: 70-year-old female with history of psoriatic arthritis with left greater than right wrist flare symptoms, afebrile. Elevated blood pressure likely due to pain. IV Dilaudid/Zofran. IV Solu-Medrol. We will send labs for inflammatory markers. Reassess blood pressure after analgesic/steroid medications administered. 0700, labs pending, response to therapies above pending, signed out to oncoming ED shift physician Dr Ann. 0715: Patient was signed out to me by Dr. Moreno, patient with a history of psoriatic arthritis to bilateral wrist, complaining of left wrist flare-up. Final disposition pending lab work Re eval, most likely discharge with steroids and pain medicine 0837: Patient was re-evaluated, significantly improved symptoms after administration medication here, patient no longer hypertensive, lab work did show only mild leukocytosis at 11.8, otherwise Chem panel unremarkable, patient states that she does have an appointment with a lastex thread winder in the next week and agrees with the being discharged home with outpatient follow up. Discharge Plan Departure Patient Disposition: Home Clinical Impression: Acute pain of left wrist Activity Restrictions/Additional Instructions: Please follow up with your lastex thread winder for your scheduled appointment as well as your primary care doctor Please read the discharge instructions sheet carefully and bring all papers to all doctor follow-up visits, as it may contain information that your doctor may want to see. Disease processes change and evolve, if your symptoms worsen or if you develop any new symptoms that are concerning to you please return for evaluation. Your evaluation today does not show any evidence of any life-threatening/serious illnesses requiring admission to the hospital or surgery. Please follow-up with your doctor for re-evaluation in approximately 1 day. Seek immediate medical attention for any worrisome symptoms. *If you do not have a primary care provider please contact the [facility] Resource line at [phone]. They will ask some questions about your medical history and help get you set up with a doctor in the community. Prescriptions: New methylprednisolone [Medrol (Albert)] 4 mg tablets,dose pack See Rx Instructions .ROUTE .COMPLEX Qty: 21 0RF Rx Instructions: for 6 days oxycodone-acetaminophen [Percocet] 5-325 mg tablet 1 tab PO Q8H PRN (Reason: pain) 3 Days Qty: 9 0RF No Action Skyrizi 150 mg/mL pen injector SUBCUT Patient Comments: [NO ORIGINAL SIG] colchicine 0.6 mg tablet 0.6 mg PO BID benzonatate 200 mg capsule 200 mg PO TID PRN (Reason: cough) Qty: 30 0RF guaifenesin 1,200 mg tablet extended release 12hr 1,200 mg PO Q12H Qty: 30 0RF albuterol sulfate 90 mcg/actuation aerosol powdr breath activated 2 inh inhalation Q4-6H PRN (Reason: wheezing) Qty: 1 0RF epinephrine 0.3 mg/0.3 mL auto-injector 0.3 mg IM ONCE Qty: 2 1RF citalopram 20 mg tablet 20 mg PO DAILY Qty: 90 3RF citalopram 10 mg tablet 10 mg PO DAILY Qty: 90 3RF rosuvastatin 10 mg tablet 10 mg PO DAILY Qty: 90 3RF levothyroxine [Synthroid] 100 mcg tablet 100 mcg PO DAILY Qty: 90 2RF naltrexone 50 mg tablet 50 mg PO DAILY Qty: 30 3RF Rx Instructions: Take 1 tab daily buspirone 10 mg tablet 10 mg PO BID PRN (Reason: for anxiety) Qty: 120 0RF cetirizine [24Hour Allergy] 10 mg tablet 5 mg PO DAILY PRN Referrals: Jared Jin MD [Primary Care Provider, Family Practice] Stand Alone Forms: Patient Portal/API
[2025-05-14] MEDS: ONDANSETRON 4 MG/2 ML INJ IV (07:17)
[2025-05-14] MEDS: methylPREDNISolone 125 MG/2 ML VIAL IV (07:17)
[2025-05-14] MEDS: HYDROMORPHONE 0.5 MG INJ IV (07:18)
[2025-05-14 07:25] LABS: Add Manual Diff / Slide Review NO; Basophils Absolute Auto 100 /uL (0-100); Basophils Percent Auto 0.6 % (0-2); Eosinophils Absolute Auto 200 /uL (0-450); Hematocrit 34.9 % (36-46); Lymphocytes Absolute Auto 1500 /uL (1100-4500); Lymphocytes Percent Auto 12.6 % (25-40); Mean Corpuscular HGB Conc 34.4 % (30-36); Mean Corpuscular Hemoglobin 33.6 PG (26-34); Mean Corpuscular Volume 97.5 fL (80-100); Monocytes Absolute Auto 700 /uL (0-900); Monocytes Percent Auto 5.7 % (3-14); Neutrophils Absolute Auto 9400 /uL (1500-7000); Neutrophils Percent Auto 79.1 % (50-75); Platelet Count 324 X10^3/uL (150-400); Red Blood Cell Count 3.58 X10^6/uL (4.0-5.2); Red Cell Distribution Width 14.6 % (11.6-14.8); White Blood Cell Count 11.8 X10^3/uL (4.5-11.0)
[2025-05-14 07:43] LABS: Erythrocyte Sedimentation Rate 50 MM/HR (0-20)
[2025-05-14 07:53] LABS: Lactate (Lactic Acid) 1.6 mmol/L (0.7-2.1)
[2025-05-14 07:55] LABS: Alanine Aminotransferase 17 IU/L (<35); Albumin 3.9 g/dL (3.5-5.0); Albumin Globulin Ratio 1.1 (1.0-2.8); Alkaline Phosphatase 88 U/L (38-126); Aspartate Aminotransferase 29 IU/L (14-36); Bilirubin Total 0.4 mg/dL (0.2-1.3); Blood Urea Nitrogen 11 mg/dL (7-17); C-Reactive Protein Quant 2.4 mg/dL (<1.0); Calcium 8.8 mg/dL (8.4-10.2); Carbon Dioxide 24 mmol/L (22-32); Chloride 100 mmol/L (98-107); Estimated Glomerular Filt Rate > 60 mL/min (>60); Globulin 3.4 g/dL (1.7-4.1); Glucose 148 mg/dL (70-99); HEMOLYSIS < 15 (0-50); Potassium 4.1 mmol/L (3.4-5.1); Sodium 134 mmol/L (137-145); Total Protein 7.3 g/dL (6.3-8.2)
[2025-05-14 08:08] LABS: Procalcitonin 0.057 ng/mL (<0.5)
[2025-05-14 09:00] VITALS: BP 190/88; PULSE 75; RESP 16; O2SAT 100
== END 2025-05-14 09:02 | disposition home or self-care (01) ==
PROVIDERS: Emergency Medicine; Emergency Provider Student in an Organized Health Care Education/Training Program; PCP Family Medicine
DX: M25.532 Pain in left wrist (principal); M25.531 Pain in right wrist; Z87.39 Personal history of other diseases of the musculoskeletal system and connective tissue
CPT/HCPCS: 36415; 80053; 83605; 84145; 85025; 85651; 86140; 96374; 96375; 99284; J1171; J2405; J2919

== ENCOUNTER → 2025-06-17 10:41 | Outpatient (CLI) | payer MEDICARE, SELFPAY ==
[2025-06-17 13:23] LABS: Add Manual Diff / Slide Review NO; Hematocrit 37.0 % (36-46); Hemoglobin 12.6 g/dL (12.0-16.0); Lymphocytes Absolute Auto 1600 /uL (1100-4500); Mean Corpuscular HGB Conc 34.1 % (30-36); Mean Corpuscular Hemoglobin 33.1 PG (26-34); Mean Corpuscular Volume 97.1 fL (80-100); Platelet Count 367 X10^3/uL (150-400)
[2025-06-17 14:18] LABS: Alanine Aminotransferase 28 IU/L (<35); Albumin 4.1 g/dL (3.5-5.0); Albumin Globulin Ratio 1.3 (1.0-2.8); Alkaline Phosphatase 100 U/L (38-126); Blood Urea Nitrogen 9 mg/dL (7-17); Calcium 9.4 mg/dL (8.4-10.2); Carbon Dioxide 25 mmol/L (22-32); Chloride 99 mmol/L (98-107); Estimated Glomerular Filt Rate > 60 mL/min (>60); Globulin 3.1 g/dL (1.7-4.1); Glucose 120 mg/dL (70-99); HEMOLYSIS < 15 (0-50); Potassium 4.1 mmol/L (3.4-5.1); Sodium 134 mmol/L (137-145); Total Protein 7.2 g/dL (6.3-8.2)
[2025-06-17 14:59] LABS: Progesterone, Total 1.80 ng/mL
[2025-06-17 15:15] LABS: Estradiol, Total 83.8 pg/mL
== END ==
PROVIDERS: PCP Family Medicine; Referring Provider Specialist; Visit Provider Specialist
DX: Z51.81 Encounter for therapeutic drug level monitoring (principal); N95.9 Unspecified menopausal and perimenopausal disorder; R53.83 Other fatigue; I10 Essential (primary) hypertension
CPT/HCPCS: 36415; 80053; 82670; 84144; 84403; 85025

== ENCOUNTER → 2025-07-23 15:52 | Outpatient (CLI) | payer MEDICARE, SELFPAY | LOC: RESP 15:52 | PROVIDERS: PCP Family Medicine; Referring Provider Family Medicine; Visit Provider Family Medicine | DX: R06.2 Wheezing (principal); Z87.891 Personal history of nicotine dependence; R94.2 Abnormal results of pulmonary function studies | CPT/HCPCS: 94060; 94726; 94729 ==

== ENCOUNTER → 2025-10-27 17:30 | Outpatient (CLI) | payer MEDICARE, SELFPAY ==
--- NOTE | 2025-10-27 17:31 | DI.RAD.S_ITS ---
PROCEDURE: XR WRIST LT MIN 3V INDICATIONS: Left wrist pain TECHNIQUE: 4 views of the wrist were acquired. COMPARISON: [facility], , XR WRIST LT MIN 3V, 12/16/2023, 12:35. FINDINGS: Bones: No fractures or dislocations. No suspicious bony lesions. Soft tissues: No suspicious soft tissue calcifications. IMPRESSION: No acute bony abnormality. Dictated by: Irving Leon M.D. on 10/28/2025 at 22:52 Approved by: Irving Leon M.D. on 10/28/2025 at 22:52
== END ==
LOC: RAD 17:31
PROVIDERS: PCP Family Medicine; Referring Provider Nurse Practitioner Family; Visit Provider Nurse Practitioner Family
DX: M25.532 Pain in left wrist (principal)
CPT/HCPCS: 73110